=== PATIENT | female | born 1960 | race Caucasian/White ===

== ENCOUNTER → 2016-05-20 | Outpatient (CLI) | payer BC ==
[~2016-05-20] MED LIST: OMEP20CA5 PO
== END | disposition home or self-care (01) ==
LOC: LAB 10:27
DX: R16.0 Hepatomegaly, not elsewhere classified (principal); C80.1 Malignant (primary) neoplasm, unspecified
CPT/HCPCS: 36415; 82565; 84520

== ENCOUNTER → 2016-06-02 | Outpatient (CLI) | payer BC ==
[2016-06-02 09:51] LABS: Basophils # (auto) 0 uL; Basophils % (auto) 0.4 % (0.0-2.0); Eosinophils # (auto) 0 uL; Eosinophils % (auto) 0.4 % (0.0-7.0); Hemoglobin 15.2 g/dL (12.2-16.2); Lymphocytes # (auto) 1.8 uL; Lymphocytes % (auto) 31.8 % (10.0-50.0); Mean Corpuscular Volume 88.1 fL (80.0-100.0); Mean Platelet Volume 7.7 fL (7.4-10.4); Monocytes # (auto) 0.4 uL; Monocytes % (auto) 6.8 % (0.0-12.0); Neutrophils # (auto) 3.5 uL; Neutrophils % (auto) 60.6 % (37.0-80.0); Platelet Count (auto) 316 10^3/uL (140-450); Red Cell Distribution Width 11.9 % (11.6-16.0); White Blood Cell 5.7 10^3/uL (4.4-10.8)
[2016-06-02 10:18] LABS: Albumin 3.5 g/dL (3.4-5.0); BUN/Creatinine Ratio 30.9; Bilirubin, Total 0.2 mg/dL (0.2-1.0); Calcium 10.2 mg/dL (8.5-10.1); Potassium 4.8 mmol/L (3.5-5.1); Total Protein 8.7 g/dL (6.4-8.2)
[2016-06-02 10:34] LABS: Urine Bilirubin Negative (Negative); Urine Blood TRACE /uL (Negative); Urine Color Yellow (Yellow); Urine Glucose Normal (Normal); Urine Ketone Negative (Negative); Urine Mucus FEW (None Seen); Urine Nitrite Negative (Negative); Urine RBC 2 /hpf (0 - 4); Urine Squamous Epithelial Cell FEW /hpf (<5); Urine Urobilinogen Normal (Negative); Urine pH 5.5 (5.0-8.0)
[2016-06-02 13:16] LABS: Hepatitis B Surface Antibody Negative
== END | disposition home or self-care (01) ==
LOC: LAB 09:22
DX: C22.9 Malignant neoplasm of liver, not specified as primary or secondary (principal)
CPT/HCPCS: 36415; 80053; 80061; 81001; 84443; 85025; 85652; 86704; 86706; 86708; 86803; 87340

== ENCOUNTER → 2016-06-10 | Outpatient (CLI) | payer BC ==
[2016-06-10 11:09] LABS: INR 1.04 (0.9-1.15); Partial Thromboplastin Time 30.3 sec (22.64-33.71); Prothrombin Time 10.7 sec (9.37-12.3)
[2016-06-10 11:42] LABS: Albumin 3.7 g/dL (3.4-5.0); BUN/Creatinine Ratio 38.2; Bilirubin, Total 0.4 mg/dL (0.2-1.0); Calcium 10.7 mg/dL (8.5-10.1); Potassium 4.5 mmol/L (3.5-5.1); Total Protein 8.8 g/dL (6.4-8.2)
== END | disposition home or self-care (01) ==
LOC: LAB 09:30
DX: C80.1 Malignant (primary) neoplasm, unspecified (principal)
CPT/HCPCS: 36415; 80053; 85610; 85730; 86900; 86901

== ENCOUNTER → 2016-09-01 | Outpatient (CLI) | payer BC ==
[2016-09-01 10:12] LABS: Basophils # (auto) 0 uL; Basophils % (auto) 0.6 % (0.0-2.0); DEFINITIVE VIEW TRANSMISSION; Eosinophils # (auto) 0 uL; Eosinophils % (auto) 0.8 % (0.0-7.0); Hemoglobin 14.7 g/dL (12.2-16.2); Lymphocytes # (auto) 2.4 uL; Mean Corpuscular Hemoglobin 26.4 pg (28.0-32.0); Mean Corpuscular Volume 82.4 fL (80.0-100.0); Mean Platelet Volume 7.6 fL (7.4-10.4); Monocytes # (auto) 0.4 uL; Monocytes % (auto) 5.6 % (0.0-12.0); Neutrophils # (auto) 3.4 uL; Platelet Count (auto) 313 10^3/uL (140-450); Red Cell Distribution Width 14.4 % (11.6-16.0); White Blood Cell 6.3 10^3/uL (4.4-10.8)
[2016-09-01 10:28] LABS: Albumin 3.9 g/dL (3.4-5.0); BUN/Creatinine Ratio 27.8; Bilirubin, Total 0.2 mg/dL (0.2-1.0); Calcium 9.4 mg/dL (8.5-10.1); Magnesium 2.6 mg/dL (1.6-2.6); Potassium 4.5 mmol/L (3.5-5.1); Total Protein 9.6 g/dL (6.4-8.2)
== END | disposition home or self-care (01) ==
LOC: LAB 09:37
DX: C22.1 Intrahepatic bile duct carcinoma (principal); Z51.11 Encounter for antineoplastic chemotherapy
CPT/HCPCS: 36415; 80053; 82378; 83735; 85025; 86301

== ENCOUNTER → 2016-09-08 | Outpatient (CLI) | payer BC ==
[2016-09-08 10:46] LABS: Basophils # (auto) 0 uL; Basophils % (auto) 0.4 % (0.0-2.0); Eosinophils # (auto) 0.1 uL; Eosinophils % (auto) 0.6 % (0.0-7.0); Hematocrit 44.4 % (36.0-46.0); Hemoglobin 14.6 g/dL (12.2-16.2); Lymphocytes # (auto) 3.1 uL; Lymphocytes % (auto) 39.3 % (10.0-50.0); Mean Corpuscular Hemoglobin 27.3 pg (28.0-32.0); Mean Corpuscular Hgb Conc. 32.9 g/dL (32.0-36.0); Mean Platelet Volume 7.8 fL (7.4-10.4); Monocytes # (auto) 0.4 uL; Monocytes % (auto) 5.5 % (0.0-12.0); Neutrophils # (auto) 4.3 uL; Neutrophils % (auto) 54.2 % (37.0-80.0); Platelet Count (auto) 299 10^3/uL (140-450); Red Cell Distribution Width 15.4 % (11.6-16.0); White Blood Cell 7.9 10^3/uL (4.4-10.8)
[2016-09-08 11:11] LABS: Albumin 3.7 g/dL (3.4-5.0); BUN/Creatinine Ratio 24.4; Bilirubin, Total 0.2 mg/dL (0.2-1.0); Calcium 9.2 mg/dL (8.5-10.1); Magnesium 2.5 mg/dL (1.6-2.6); Potassium 4.7 mmol/L (3.5-5.1); Total Protein 9.2 g/dL (6.4-8.2)
== END | disposition home or self-care (01) ==
LOC: LAB 10:15
DX: C22.1 Intrahepatic bile duct carcinoma (principal); Z51.11 Encounter for antineoplastic chemotherapy
CPT/HCPCS: 36415; 80053; 83735; 85025

== ENCOUNTER → 2016-09-15 | Outpatient (CLI) | payer BC ==
[2016-09-15 09:47] LABS: Basophils # (auto) 0 uL; Basophils % (auto) 0.4 % (0.0-2.0); Eosinophils # (auto) 0.1 uL; Eosinophils % (auto) 1.7 % (0.0-7.0); Hematocrit 43.2 % (36.0-46.0); Hemoglobin 14.3 g/dL (12.2-16.2); Lymphocytes # (auto) 2.3 uL; Lymphocytes % (auto) 43.9 % (10.0-50.0); Mean Corpuscular Hemoglobin 27.3 pg (28.0-32.0); Mean Corpuscular Hgb Conc. 33.1 g/dL (32.0-36.0); Mean Corpuscular Volume 82.4 fL (80.0-100.0); Monocytes # (auto) 0.1 uL; Monocytes % (auto) 1.7 % (0.0-12.0); Neutrophils # (auto) 2.7 uL; Neutrophils % (auto) 52.3 % (37.0-80.0); Platelet Count (auto) 257 10^3/uL (140-450); Red Cell Distribution Width 15.9 % (11.6-16.0); White Blood Cell 5.1 10^3/uL (4.4-10.8)
[2016-09-15 09:51] LABS: Albumin 3.1 g/dL (3.4-5.0); BUN/Creatinine Ratio 29.6; Calcium 8.9 mg/dL (8.5-10.1); Magnesium 2.1 mg/dL (1.6-2.6); Potassium 4.7 mmol/L (3.5-5.1)
[2016-09-15 09:53] LABS: Bilirubin, Total 0.3 mg/dL (0.2-1.0); Total Protein 8.3 g/dL (6.4-8.2)
== END | disposition home or self-care (01) ==
LOC: LAB 08:52
DX: C80.1 Malignant (primary) neoplasm, unspecified (principal); C22.1 Intrahepatic bile duct carcinoma; Z51.11 Encounter for antineoplastic chemotherapy
CPT/HCPCS: 36415; 80053; 83735; 85025

== ENCOUNTER → 2016-09-29 | Outpatient (CLI) | payer BC ==
[~2016-09-29] MED LIST changes: -OMEP20CA5 PO; +OMEP20CA74 PO
[2016-09-29 10:30] LABS: DEFINITIVE VIEW TRANSMISSION; Hematocrit 38.2 % (36.0-46.0); Hemoglobin 12.6 g/dL (12.2-16.2); Mean Corpuscular Hemoglobin 26.9 pg (28.0-32.0); Mean Corpuscular Hgb Conc. 32.8 g/dL (32.0-36.0); Mean Corpuscular Volume 81.8 fL (80.0-100.0); Platelet Count (auto) 151 10^3/uL (140-450); White Blood Cell 3.2 10^3/uL (4.4-10.8)
[2016-09-29 10:47] LABS: Albumin 3.4 g/dL (3.4-5.0); Anion Gap 11 (5-15); BUN/Creatinine Ratio 21.3; Blood Urea Nitrogen 17 mg/dL (7-18); Calcium 8.7 mg/dL (8.5-10.1); Carbon Dioxide 20 mmol/L (21-32); Chloride 114 mmol/L (98-107); GFR African American 95 mL/min; GFR Non-African American 79 mL/min; Glucose 91 mg/dL (74-106); Magnesium 2.1 mg/dL (1.6-2.6); Potassium 4.5 mmol/L (3.5-5.1); Sodium 145 mmol/L (136-145)
[2016-09-29 10:50] LABS: Alkaline Phosphatase 138 U/L (45-117); Aspartate Aminotransferase 36 U/L (15-37); Bilirubin, Total < 0.1 mg/dL (0.2-1.0); Total Protein 8.7 g/dL (6.4-8.2)
[2016-09-29 10:53] LABS: Metamyelocytes % 0; Myelocytes % 0; Promyelocytes % 0; Reactive Lymphocytes 0
[2016-09-29 11:19] LABS: Platelet Estimate Adequate; RBC Morphology Normal
== END | disposition home or self-care (01) ==
LOC: LAB 09:38
DX: C22.1 Intrahepatic bile duct carcinoma (principal); Z51.11 Encounter for antineoplastic chemotherapy
CPT/HCPCS: 36415; 80053; 83735; 85007; 85027

== ENCOUNTER → 2016-10-02 | Outpatient (CLI) | payer BC ==
[2016-10-02 10:15] LABS: DEFINITIVE VIEW TRANSMISSION; Hematocrit 40.1 % (36.0-46.0); Hemoglobin 13.2 g/dL (12.2-16.2); Mean Corpuscular Hemoglobin 27.2 pg (28.0-32.0); Mean Corpuscular Hgb Conc. 32.9 g/dL (32.0-36.0); Mean Corpuscular Volume 82.8 fL (80.0-100.0); Mean Platelet Volume 6.8 fL (7.4-10.4); Platelet Count (auto) 467 10^3/uL (140-450); Red Cell Distribution Width 16.6 % (11.6-16.0); SUSPECT VIEW TRANSMISSION; White Blood Cell 3.5 10^3/uL (4.4-10.8)
[2016-10-02 10:23] LABS: Metamyelocytes % 0; Myelocytes % 0; Promyelocytes % 0; Reactive Lymphocytes 0
[2016-10-02 11:26] LABS: Potassium 4.4 mmol/L (3.5-5.1)
[2016-10-02 11:30] LABS: Albumin 3.3 g/dL (3.4-5.0); BUN/Creatinine Ratio 23.6; Calcium 8.6 mg/dL (8.5-10.1); Magnesium 2.1 mg/dL (1.6-2.6)
[2016-10-02 11:33] LABS: Bilirubin, Total 0.1 mg/dL (0.2-1.0); Total Protein 8.8 g/dL (6.4-8.2)
[2016-10-02 13:15] LABS: Platelet Estimate Increased
== END | disposition home or self-care (01) ==
LOC: LAB 09:37
DX: C22.1 Intrahepatic bile duct carcinoma (principal)
CPT/HCPCS: 36415; 80053; 82378; 83735; 85007; 85027; 86301

== ENCOUNTER → 2016-10-08 | Outpatient (CLI) | payer BC | END | disposition home or self-care (01) | LOC: LAB 10:41 | PROVIDERS: ATTEND Internal Medicine | DX: C22.1 Intrahepatic bile duct carcinoma (principal); C80.1 Malignant (primary) neoplasm, unspecified; G44.52 New daily persistent headache (NDPH) | CPT/HCPCS: 36415; 82565; 84520 ==

== ENCOUNTER → 2016-10-09 | Outpatient (CLI) | payer BC ==
[2016-10-09 09:04] LABS: Basophils # (auto) 0.1 uL; Basophils % (auto) 0.8 % (0.0-2.0); CONDITION Y; Eosinophils # (auto) 0.1 uL; Hematocrit 38.6 % (36.0-46.0); Hemoglobin 12.9 g/dL (12.2-16.2); Lymphocytes # (auto) 2.5 uL; Lymphocytes % (auto) 25.3 % (10.0-50.0); Mean Corpuscular Hemoglobin 27.4 pg (28.0-32.0); Mean Corpuscular Hgb Conc. 33.5 g/dL (32.0-36.0); Mean Platelet Volume 6.5 fL (7.4-10.4); Monocytes # (auto) 1.2 uL; Monocytes % (auto) 12.3 % (0.0-12.0); Neutrophils % (auto) 60.6 % (37.0-80.0); Platelet Count (auto) 682 10^3/uL (140-450); Red Cell Distribution Width 17.5 % (11.6-16.0); White Blood Cell 9.9 10^3/uL (4.4-10.8)
[2016-10-09 09:21] LABS: Albumin 3.3 g/dL (3.4-5.0); Magnesium 2.2 mg/dL (1.6-2.6)
[2016-10-09 09:23] LABS: BUN/Creatinine Ratio 33.3
[2016-10-09 09:26] LABS: Bilirubin, Total 0.1 mg/dL (0.2-1.0); Total Protein 8.8 g/dL (6.4-8.2)
== END | disposition home or self-care (01) ==
LOC: LAB 08:44
DX: C22.1 Intrahepatic bile duct carcinoma (principal); Z51.11 Encounter for antineoplastic chemotherapy
CPT/HCPCS: 36415; 80053; 83735; 85025

== ENCOUNTER → 2016-10-15 | Outpatient (CLI) | payer BC ==
[2016-10-15 11:35] LABS: Basophils # (auto) 0.1 uL; CONDITION Y; Eosinophils # (auto) 0 uL; Eosinophils % (auto) 0.4 % (0.0-7.0); Hematocrit 38.5 % (36.0-46.0); Hemoglobin 12.8 g/dL (12.2-16.2); Lymphocytes # (auto) 2.2 uL; Lymphocytes % (auto) 34.4 % (10.0-50.0); Mean Corpuscular Hemoglobin 27.1 pg (28.0-32.0); Mean Corpuscular Hgb Conc. 33.2 g/dL (32.0-36.0); Mean Corpuscular Volume 81.5 fL (80.0-100.0); Mean Platelet Volume 7.2 fL (7.4-10.4); Monocytes # (auto) 0.1 uL; Monocytes % (auto) 2.1 % (0.0-12.0); Neutrophils # (auto) 3.9 uL; Neutrophils % (auto) 62.1 % (37.0-80.0); Platelet Count (auto) 485 10^3/uL (140-450); Red Cell Distribution Width 17.4 % (11.6-16.0); White Blood Cell 6.3 10^3/uL (4.4-10.8)
[2016-10-15 12:12] LABS: Albumin 3.2 g/dL (3.4-5.0); BUN/Creatinine Ratio 53.8; Bilirubin, Total 0.3 mg/dL (0.2-1.0); Calcium 8.8 mg/dL (8.5-10.1); Magnesium 2.3 mg/dL (1.6-2.6); Potassium 4.2 mmol/L (3.5-5.1); Total Protein 8.3 g/dL (6.4-8.2)
== END | disposition home or self-care (01) ==
LOC: LAB 11:04
DX: C22.1 Intrahepatic bile duct carcinoma (principal); Z51.11 Encounter for antineoplastic chemotherapy
CPT/HCPCS: 36415; 80053; 83735; 85025

== ENCOUNTER → 2016-10-29 | Outpatient (CLI) | payer BC ==
[2016-10-29 11:26] LABS: Basophils # (auto) 0 uL; Basophils % (auto) 0.4 % (0.0-2.0); CONDITION Y; DEFINITIVE SEE PRINTOUT; Eosinophils # (auto) 0.1 uL; Eosinophils % (auto) 1.1 % (0.0-7.0); Hematocrit 38.5 % (36.0-46.0); Lymphocytes # (auto) 2.1 uL; Lymphocytes % (auto) 34.5 % (10.0-50.0); Mean Corpuscular Hgb Conc. 33.7 g/dL (32.0-36.0); Mean Platelet Volume 7.1 fL (7.4-10.4); Monocytes # (auto) 0.9 uL; Monocytes % (auto) 14.9 % (0.0-12.0); Neutrophils % (auto) 49.1 % (37.0-80.0); Platelet Count (auto) 240 10^3/uL (140-450); Red Cell Distribution Width 20.6 % (11.6-16.0); SUSPECT SEE PRINTOUT; White Blood Cell 6.1 10^3/uL (4.4-10.8)
[2016-10-29 11:57] LABS: Albumin 3.2 g/dL (3.4-5.0); BUN/Creatinine Ratio 31.7; Bilirubin, Total 0.2 mg/dL (0.2-1.0); Magnesium 2.2 mg/dL (1.6-2.6); Potassium 4.5 mmol/L (3.5-5.1); Total Protein 8.4 g/dL (6.4-8.2)
== END | disposition home or self-care (01) ==
LOC: LAB 11:09
DX: C22.1 Intrahepatic bile duct carcinoma (principal); Z51.11 Encounter for antineoplastic chemotherapy
CPT/HCPCS: 36415; 80053; 83735; 85025

== ENCOUNTER → 2016-11-05 | Outpatient (CLI) | payer BC ==
[2016-11-05 10:59] LABS: Basophils # (auto) 0 uL; Basophils % (auto) 0.7 % (0.0-2.0); CONDITION Y; DEFINITIVE SEE PRINTOUT; Eosinophils # (auto) 0.1 uL; Eosinophils % (auto) 1.9 % (0.0-7.0); Hematocrit 41.1 % (36.0-46.0); Hemoglobin 13.8 g/dL (12.2-16.2); Lymphocytes # (auto) 2.3 uL; Lymphocytes % (auto) 46.4 % (10.0-50.0); Mean Corpuscular Hemoglobin 28.3 pg (28.0-32.0); Mean Corpuscular Hgb Conc. 33.6 g/dL (32.0-36.0); Mean Corpuscular Volume 84.3 fL (80.0-100.0); Mean Platelet Volume 7.3 fL (7.4-10.4); Monocytes # (auto) 0.1 uL; Monocytes % (auto) 2.8 % (0.0-12.0); Neutrophils # (auto) 2.3 uL; Neutrophils % (auto) 48.2 % (37.0-80.0); Platelet Count (auto) 709 10^3/uL (140-450); White Blood Cell 4.9 10^3/uL (4.4-10.8)
[2016-11-05 11:14] LABS: Red Cell Distribution Width 22.6 % (11.6-16.0)
[2016-11-05 11:43] LABS: Albumin 3.6 g/dL (3.4-5.0); BUN/Creatinine Ratio 31.3; Bilirubin, Total 0.4 mg/dL (0.2-1.0); Calcium 9.8 mg/dL (8.5-10.1); Magnesium 2.3 mg/dL (1.6-2.6); Potassium 4.4 mmol/L (3.5-5.1); Total Protein 8.5 g/dL (6.4-8.2)
[2016-11-05 12:35] LABS: Anisocytosis Slight; Platelet Estimate Increased
== END | disposition home or self-care (01) ==
LOC: LAB 10:29
DX: C22.1 Intrahepatic bile duct carcinoma (principal); Z51.12 Encounter for antineoplastic immunotherapy
CPT/HCPCS: 36415; 80053; 83735; 85025

== ENCOUNTER → 2016-11-17 | Outpatient (CLI) | payer BC ==
[2016-11-17 11:00] LABS: Basophils # (auto) 0 uL; Basophils % (auto) 0.3 % (0.0-2.0); CONDITION Y; DEFINITIVE SEE PRINTOUT; Eosinophils # (auto) 0 uL; Eosinophils % (auto) 0.4 % (0.0-7.0); Hematocrit 33.8 % (36.0-46.0); Hemoglobin 11.6 g/dL (12.2-16.2); Lymphocytes # (auto) 2.3 uL; Lymphocytes % (auto) 38.3 % (10.0-50.0); Mean Corpuscular Hemoglobin 29.9 pg (28.0-32.0); Mean Corpuscular Hgb Conc. 34.3 g/dL (32.0-36.0); Mean Corpuscular Volume 87.1 fL (80.0-100.0); Mean Platelet Volume 7.5 fL (7.4-10.4); Monocytes # (auto) 0.6 uL; Monocytes % (auto) 10.6 % (0.0-12.0); Neutrophils % (auto) 50.4 % (37.0-80.0); Platelet Count (auto) 127 10^3/uL (140-450); White Blood Cell 5.9 10^3/uL (4.4-10.8)
[2016-11-17 11:03] LABS: Red Cell Distribution Width 22.9 % (11.6-16.0)
[2016-11-17 11:09] LABS: Albumin 3.2 g/dL (3.4-5.0); BUN/Creatinine Ratio 27.2; Bilirubin, Total 0.1 mg/dL (0.2-1.0); Calcium 8.9 mg/dL (8.5-10.1); Potassium 4.3 mmol/L (3.5-5.1); Total Protein 8.1 g/dL (6.4-8.2)
== END | disposition home or self-care (01) ==
LOC: LAB 10:29
DX: Z51.11 Encounter for antineoplastic chemotherapy (principal); C22.1 Intrahepatic bile duct carcinoma
CPT/HCPCS: 36415; 80053; 83735; 85025

== ENCOUNTER → 2016-11-25 | Outpatient (CLI) | payer BC ==
[2016-11-25 10:28] LABS: Basophils # (auto) 0 uL; Basophils % (auto) 0.6 % (0.0-2.0); CONDITION Y; DEFINITIVE SEE PRINTOUT; Eosinophils # (auto) 0.1 uL; Eosinophils % (auto) 1.8 % (0.0-7.0); Hematocrit 38.8 % (36.0-46.0); Hemoglobin 13.4 g/dL (12.2-16.2); Lymphocytes # (auto) 2.1 uL; Lymphocytes % (auto) 41.9 % (10.0-50.0); Mean Corpuscular Hemoglobin 30.8 pg (28.0-32.0); Mean Corpuscular Hgb Conc. 34.4 g/dL (32.0-36.0); Mean Corpuscular Volume 89.5 fL (80.0-100.0); Mean Platelet Volume 6.9 fL (7.4-10.4); Monocytes # (auto) 0.1 uL; Monocytes % (auto) 2.1 % (0.0-12.0); Neutrophils # (auto) 2.7 uL; Neutrophils % (auto) 53.6 % (37.0-80.0); Platelet Count (auto) 576 10^3/uL (140-450); White Blood Cell 4.9 10^3/uL (4.4-10.8)
[2016-11-25 10:33] LABS: Red Cell Distribution Width 23.6 % (11.6-16.0)
[2016-11-25 11:07] LABS: Platelet Estimate Increased
[2016-11-25 11:08] LABS: Anisocytosis Moderate
[2016-11-25 11:14] LABS: Potassium 4.3 mmol/L (3.5-5.1)
[2016-11-25 11:15] LABS: Albumin 3.8 g/dL (3.4-5.0); BUN/Creatinine Ratio 33.7; Bilirubin, Total 0.4 mg/dL (0.2-1.0); Calcium 9.5 mg/dL (8.5-10.1); Magnesium 2.2 mg/dL (1.6-2.6); Total Protein 8.9 g/dL (6.4-8.2)
== END | disposition home or self-care (01) ==
LOC: LAB 08:38
DX: C22.1 Intrahepatic bile duct carcinoma (principal)
CPT/HCPCS: 36415; 80053; 82378; 83735; 85025; 86301

== ENCOUNTER → 2016-12-16 | Outpatient (CLI) | payer BC ==
[2016-12-16 09:47] LABS: CONDITION Y; DEFINITIVE SEE PRINTOUT; Hematocrit 37.8 % (36.0-46.0); Hemoglobin 12.7 g/dL (12.2-16.2); Mean Corpuscular Hgb Conc. 33.5 g/dL (32.0-36.0); Mean Corpuscular Volume 95.6 fL (80.0-100.0); Mean Platelet Volume 6.8 fL (7.4-10.4); Platelet Count (auto) 621 10^3/uL (140-450); White Blood Cell 5.5 10^3/uL (4.4-10.8)
[2016-12-16 09:51] LABS: Metamyelocytes % 0; Myelocytes % 0; Promyelocytes % 0
[2016-12-16 10:08] LABS: Albumin 3.6 g/dL (3.4-5.0); BUN/Creatinine Ratio 39.1; Bilirubin, Total 0.3 mg/dL (0.2-1.0); Calcium 9.2 mg/dL (8.5-10.1); Potassium 4.2 mmol/L (3.5-5.1); Total Protein 8.8 g/dL (6.4-8.2)
[2016-12-16 11:30] LABS: Reactive Lymphocytes 1
[2016-12-16 11:31] LABS: Anisocytosis Slight; Giant Platelets Few; Platelet Clumps FEW; Platelet Estimate Increased
== END | disposition home or self-care (01) ==
LOC: LAB 09:10
DX: Z51.11 Encounter for antineoplastic chemotherapy (principal); C22.1 Intrahepatic bile duct carcinoma
CPT/HCPCS: 36415; 80053; 83735; 85007; 85027

== ENCOUNTER → 2017-01-08 | Outpatient (CLI) | payer BC ==
[2017-01-08 11:30] LABS: Basophils # (auto) 0 uL; Basophils % (auto) 0.3 % (0.0-2.0); Eosinophils # (auto) 0 uL; Eosinophils % (auto) 0.8 % (0.0-7.0); Hematocrit 39.4 % (36.0-46.0); Hemoglobin 13.4 g/dL (12.2-16.2); Lymphocytes # (auto) 2.2 uL; Lymphocytes % (auto) 50.8 % (10.0-50.0); Mean Corpuscular Hemoglobin 33.1 pg (28.0-32.0); Mean Corpuscular Volume 97.3 fL (80.0-100.0); Mean Platelet Volume 7.1 fL (6.9-10.8); Monocytes # (auto) 0.6 uL; Neutrophils # (auto) 1.4 uL; Neutrophils % (auto) 33.1 % (37.0-80.0); Nucleated Red Blood Cells % 0.1 %; Platelet Count (auto) 278 10^3/uL (140-450); Red Cell Distribution Width 16.5 % (11.8-14.3); White Blood Cell 4.3 10^3/uL (4.4-10.8)
[2017-01-08 11:47] LABS: Albumin 3.8 g/dL (3.4-5.0); BUN/Creatinine Ratio 27.1; Magnesium 2.1 mg/dL (1.6-2.6); Potassium 4.6 mmol/L (3.5-5.1)
[2017-01-08 11:50] LABS: Bilirubin, Total 0.2 mg/dL (0.2-1.0); Total Protein 8.7 g/dL (6.4-8.2)
== END | disposition home or self-care (01) ==
LOC: LAB 11:10
DX: Z51.5 Encounter for palliative care (principal); C22.1 Intrahepatic bile duct carcinoma; R79.89 Other specified abnormal findings of blood chemistry
CPT/HCPCS: 36415; 80053; 83735; 85025

== ENCOUNTER → 2017-01-13 | Outpatient (CLI) | payer BC | END | disposition home or self-care (01) | LOC: LAB 10:46 | DX: C22.1 Intrahepatic bile duct carcinoma (principal) | CPT/HCPCS: 82378 ==

== ENCOUNTER → 2017-01-26 | Outpatient (CLI) | payer BC ==
[2017-01-26 11:10] LABS: Hemoglobin 11.8 g/dL (12.2-16.2); Mean Corpuscular Hemoglobin 33.4 pg (28.0-32.0); Mean Corpuscular Hgb Conc. 34.7 g/dL (32.0-36.0); Mean Platelet Volume 7.7 fL (6.9-10.8); Platelet Count (auto) 59 10^3/uL (140-450); White Blood Cell 4.3 10^3/uL (4.4-10.8)
[2017-01-26 11:11] LABS: Mean Corpuscular Volume 96.2 fL (80.0-100.0); Red Cell Distribution Width 15.2 % (11.8-14.3)
[2017-01-26 11:53] LABS: Albumin 3.6 g/dL (3.4-5.0); BUN/Creatinine Ratio 29.1; Bilirubin, Total 0.3 mg/dL (0.2-1.0); Calcium 9.7 mg/dL (8.5-10.1); Total Protein 8.3 g/dL (6.4-8.2)
[2017-01-26 13:27] LABS: Basophils # (auto) 0 uL; Basophils % (auto) 0.4 % (0.0-2.0); Eosinophils # (auto) 0 uL; Eosinophils % (auto) 0.3 % (0.0-7.0); Lymphocytes # (auto) 1.9 uL; Monocytes # (auto) 0.4 uL; Monocytes % (auto) 9.1 % (0.0-12.0); Neutrophils % (auto) 46.2 % (37.0-80.0)
[2017-01-26 13:29] LABS: Platelet Estimate Decreased
== END | disposition home or self-care (01) ==
LOC: LAB 10:47
PROVIDERS: ATTEND Internal Medicine
DX: C22.1 Intrahepatic bile duct carcinoma (principal); Z79.899 Other long term (current) drug therapy
CPT/HCPCS: 36415; 80053; 83735; 85007; 85025; 85027

== ENCOUNTER → 2017-01-29 | Outpatient (CLI) | payer BC ==
[2017-01-29 11:01] LABS: Basophils # (auto) 0 uL; Basophils % (auto) 0.7 % (0.0-2.0); Eosinophils # (auto) 0.1 uL; Eosinophils % (auto) 1.7 % (0.0-7.0); Hematocrit 35.9 % (36.0-46.0); Hemoglobin 12.2 g/dL (12.2-16.2); Lymphocytes # (auto) 1.6 uL; Lymphocytes % (auto) 41.1 % (10.0-50.0); Mean Corpuscular Hemoglobin 33.3 pg (28.0-32.0); Mean Corpuscular Hgb Conc. 33.9 g/dL (32.0-36.0); Mean Corpuscular Volume 98.2 fL (80.0-100.0); Mean Platelet Volume 8.1 fL (6.9-10.8); Monocytes # (auto) 0.5 uL; Monocytes % (auto) 11.7 % (0.0-12.0); Neutrophils # (auto) 1.8 uL; Neutrophils % (auto) 44.8 % (37.0-80.0); Nucleated Red Blood Cells % 0.2 %; Platelet Count (auto) 138 10^3/uL (140-450); Red Cell Distribution Width 15.6 % (11.8-14.3); White Blood Cell 3.9 10^3/uL (4.4-10.8)
== END | disposition home or self-care (01) ==
LOC: LAB 09:27
PROVIDERS: ATTEND Internal Medicine
DX: D69.6 Thrombocytopenia, unspecified (principal)
CPT/HCPCS: 36415; 85025

== ENCOUNTER → 2017-02-04 | Outpatient (CLI) | payer BC ==
[2017-02-04 10:59] LABS: Basophils # (auto) 0 uL; Basophils % (auto) 0.8 % (0.0-2.0); Eosinophils # (auto) 0.1 uL; Eosinophils % (auto) 2.3 % (0.0-7.0); Hematocrit 37.7 % (36.0-46.0); Hemoglobin 12.7 g/dL (12.2-16.2); Lymphocytes # (auto) 1.8 uL; Lymphocytes % (auto) 52.8 % (10.0-50.0); Mean Corpuscular Hemoglobin 32.9 pg (28.0-32.0); Mean Corpuscular Hgb Conc. 33.8 g/dL (32.0-36.0); Mean Corpuscular Volume 97.3 fL (80.0-100.0); Mean Platelet Volume 6.7 fL (6.9-10.8); Monocytes # (auto) 0.2 uL; Monocytes % (auto) 4.4 % (0.0-12.0); Neutrophils # (auto) 1.4 uL; Neutrophils % (auto) 39.7 % (37.0-80.0); Nucleated Red Blood Cells % 0.1 %; Platelet Count (auto) 438 10^3/uL (140-450); White Blood Cell 3.5 10^3/uL (4.4-10.8)
[2017-02-04 11:26] LABS: Albumin 3.8 g/dL (3.4-5.0); BUN/Creatinine Ratio 39.6; Bilirubin, Total 0.2 mg/dL (0.2-1.0); Calcium 9.3 mg/dL (8.5-10.1); Magnesium 1.9 mg/dL (1.6-2.6); Potassium 4.3 mmol/L (3.5-5.1); Total Protein 8.6 g/dL (6.4-8.2)
== END | disposition home or self-care (01) ==
LOC: LAB 10:33
DX: C22.1 Intrahepatic bile duct carcinoma (principal); R79.89 Other specified abnormal findings of blood chemistry
CPT/HCPCS: 36415; 80053; 83735; 85025

== ENCOUNTER → 2017-02-18 | Outpatient (CLI) | payer BC ==
[2017-02-18 09:32] LABS: Basophils # (auto) 0 uL; Basophils % (auto) 0.4 % (0.0-2.0); Eosinophils # (auto) 0 uL; Eosinophils % (auto) 0.5 % (0.0-7.0); Hematocrit 30.9 % (36.0-46.0); Hemoglobin 10.5 g/dL (12.2-16.2); Lymphocytes # (auto) 1.5 uL; Lymphocytes % (auto) 39.2 % (10.0-50.0); Mean Corpuscular Hemoglobin 32.8 pg (28.0-32.0); Mean Corpuscular Hgb Conc. 34.1 g/dL (32.0-36.0); Mean Corpuscular Volume 96.3 fL (80.0-100.0); Mean Platelet Volume 7.7 fL (6.9-10.8); Monocytes # (auto) 0.5 uL; Monocytes % (auto) 14.3 % (0.0-12.0); Neutrophils # (auto) 1.7 uL; Neutrophils % (auto) 45.6 % (37.0-80.0); Nucleated Red Blood Cells % 0.2 %; Platelet Count (auto) 99 10^3/uL (140-450); Red Cell Distribution Width 15.9 % (11.8-14.3); White Blood Cell 3.8 10^3/uL (4.4-10.8)
[2017-02-18 10:43] LABS: Albumin 3.4 g/dL (3.4-5.0); BUN/Creatinine Ratio 26.8; Bilirubin, Total 0.2 mg/dL (0.2-1.0); Calcium 8.8 mg/dL (8.5-10.1); Magnesium 1.9 mg/dL (1.6-2.6); Potassium 4.4 mmol/L (3.5-5.1)
== END | disposition home or self-care (01) ==
LOC: LAB 09:10
DX: C22.1 Intrahepatic bile duct carcinoma (principal); R79.89 Other specified abnormal findings of blood chemistry
CPT/HCPCS: 36415; 80053; 82378; 83735; 85025; 86301

== ENCOUNTER → 2017-02-25 | Outpatient (CLI) | payer BC ==
[2017-02-25 09:32] LABS: Basophils # (auto) 0 uL; Basophils % (auto) 1.1 % (0.0-2.0); Eosinophils # (auto) 0.1 uL; Eosinophils % (auto) 2.7 % (0.0-7.0); Hematocrit 33.2 % (36.0-46.0); Hemoglobin 11.1 g/dL (12.2-16.2); Lymphocytes # (auto) 1.5 uL; Lymphocytes % (auto) 49.4 % (10.0-50.0); Mean Corpuscular Hemoglobin 32.2 pg (28.0-32.0); Mean Corpuscular Hgb Conc. 33.6 g/dL (32.0-36.0); Monocytes # (auto) 0.2 uL; Monocytes % (auto) 5.5 % (0.0-12.0); Neutrophils # (auto) 1.2 uL; Neutrophils % (auto) 41.3 % (37.0-80.0); Nucleated Red Blood Cells % 0.1 %; Platelet Count (auto) 396 10^3/uL (140-450); Red Blood Cells 3.45 10^6/uL (4.0-5.20); Red Cell Distribution Width 16.1 % (11.8-14.3)
[2017-02-25 10:01] LABS: Albumin 3.4 g/dL (3.4-5.0); BUN/Creatinine Ratio 29.8; Bilirubin, Total 0.4 mg/dL (0.2-1.0); Calcium 8.9 mg/dL (8.5-10.1); Magnesium 1.6 mg/dL (1.6-2.6); Potassium 4.2 mmol/L (3.5-5.1)
== END | disposition home or self-care (01) ==
LOC: LAB 08:58
DX: C22.1 Intrahepatic bile duct carcinoma (principal)
CPT/HCPCS: 36415; 80053; 83735; 85025

== ENCOUNTER → 2017-03-26 | Outpatient (CLI) | payer BC ==
[2017-03-26 13:52] LABS: Basophils # (auto) 0.1 uL; Eosinophils # (auto) 0 uL; Eosinophils % (auto) 0.3 % (0.0-7.0); Hematocrit 37.3 % (36.0-46.0); Hemoglobin 12.5 g/dL (12.2-16.2); Lymphocytes # (auto) 2.4 uL; Mean Corpuscular Hemoglobin 32.6 pg (28.0-32.0); Mean Corpuscular Hgb Conc. 33.6 g/dL (32.0-36.0); Mean Corpuscular Volume 97.2 fL (80.0-100.0); Mean Platelet Volume 7.6 fL (6.9-10.8); Monocytes # (auto) 0.8 uL; Monocytes % (auto) 9.5 % (0.0-12.0); Neutrophils % (auto) 60.2 % (37.0-80.0); Nucleated Red Blood Cells % 0.1 %; Platelet Count (auto) 320 10^3/uL (140-450); Red Cell Distribution Width 17.3 % (11.8-14.3); White Blood Cell 8.3 10^3/uL (4.4-10.8)
[2017-03-26 14:05] LABS: Albumin 4.2 g/dL (3.4-5.0); BUN/Creatinine Ratio 25.2; Bilirubin, Total 0.5 mg/dL (0.2-1.0); Calcium 9.6 mg/dL (8.5-10.1); Magnesium 2.1 mg/dL (1.6-2.6); Potassium 4.8 mmol/L (3.5-5.1); Total Protein 9.1 g/dL (6.4-8.2)
== END | disposition home or self-care (01) ==
LOC: LAB 12:40
DX: C22.1 Intrahepatic bile duct carcinoma (principal); Z79.899 Other long term (current) drug therapy
CPT/HCPCS: 36415; 80053; 82378; 83735; 85025; 86301

== ENCOUNTER → 2017-03-31 | Outpatient (CLI) | payer BC | END | disposition home or self-care (01) | LOC: LAB 08:01 | PROVIDERS: ATTEND Internal Medicine | DX: C80.1 Malignant (primary) neoplasm, unspecified (principal) | CPT/HCPCS: 36415; 82565; 84520 ==

== ENCOUNTER → 2017-06-25 | Outpatient (CLI) | payer BC ==
[2017-06-25 10:04] LABS: Basophils # (auto) 0 uL; Basophils % (auto) 0.7 % (0.0-2.0); Eosinophils # (auto) 0.1 uL; Eosinophils % (auto) 1.4 % (0.0-7.0); Hematocrit 43.2 % (36.0-46.0); Hemoglobin 14.4 g/dL (12.2-16.2); Lymphocytes % (auto) 33.1 % (10.0-50.0); Mean Corpuscular Hemoglobin 30.8 pg (28.0-32.0); Mean Corpuscular Hgb Conc. 33.3 g/dL (32.0-36.0); Mean Corpuscular Volume 92.5 fL (80.0-100.0); Monocytes # (auto) 0.5 uL; Monocytes % (auto) 7.9 % (0.0-12.0); Neutrophils # (auto) 3.4 uL; Neutrophils % (auto) 56.9 % (37.0-80.0); Platelet Count (auto) 260 10^3/uL (140-450); Red Blood Cells 4.67 10^6/uL (4.0-5.20); Red Cell Distribution Width 12.7 % (11.8-14.3); White Blood Cell 5.9 10^3/uL (4.4-10.8)
[2017-06-25 10:42] LABS: Albumin 3.7 g/dL (3.4-5.0); BUN/Creatinine Ratio 21.2; Bilirubin, Total 0.2 mg/dL (0.2-1.0); Calcium 9.4 mg/dL (8.5-10.1); Magnesium 2.4 mg/dL (1.6-2.6); Potassium 4.6 mmol/L (3.5-5.1); Total Protein 8.9 g/dL (6.4-8.2)
[2017-06-25 11:38] LABS: Urine Bacteria NONE SEEN /hpf (None Seen); Urine Blood Negative /uL (Negative); Urine Specific Gravity 1.026 (1.001-1.035); Urine WBC 8 /hpf (0 - 5)
[2017-06-25 20:11] LABS: Carcinoembryonic Antigen 0.52 ng/mL (<5.0 OR =)
[2017-06-25 20:24] LABS: Free T4 (Free Thyroxine) 1.13 ng/dL (0.89-1.76)
== END | disposition home or self-care (01) ==
LOC: LAB 09:26
PROVIDERS: ATTEND Internal Medicine
DX: C22.1 Intrahepatic bile duct carcinoma (principal); I10 Essential (primary) hypertension
CPT/HCPCS: 36415; 80053; 80061; 81001; 82043; 82378; 83735; 84439; 84443; 85025; 86301

== ENCOUNTER → 2017-09-28 | Outpatient (CLI) | payer BC ==
[2017-09-28 09:30] LABS: Basophils # (auto) 0 uL; Basophils % (auto) 0.5 % (0.0-2.0); Eosinophils # (auto) 0.1 uL; Eosinophils % (auto) 1.1 % (0.0-7.0); Hematocrit 44.1 % (36.0-46.0); Hemoglobin 14.8 g/dL (12.2-16.2); Lymphocytes # (auto) 2.1 uL; Lymphocytes % (auto) 37.1 % (10.0-50.0); Mean Corpuscular Hemoglobin 31.8 pg (28.0-32.0); Mean Corpuscular Hgb Conc. 33.6 g/dL (32.0-36.0); Mean Corpuscular Volume 94.7 fL (80.0-100.0); Monocytes # (auto) 0.5 uL; Monocytes % (auto) 8.2 % (0.0-12.0); Neutrophils % (auto) 53.1 % (37.0-80.0); Platelet Count (auto) 213 10^3/uL (140-450); Red Blood Cells 4.66 10^6/uL (4.0-5.20); Red Cell Distribution Width 12.6 % (11.8-14.3); White Blood Cell 5.7 10^3/uL (4.4-10.8)
[2017-09-28 10:04] LABS: Albumin 3.9 g/dL (3.4-5.0); BUN/Creatinine Ratio 21.3; Bilirubin, Total 0.4 mg/dL (0.2-1.0); Calcium 9.4 mg/dL (8.5-10.1); Potassium 4.3 mmol/L (3.5-5.1); Total Protein 8.6 g/dL (6.4-8.2)
== END | disposition home or self-care (01) ==
LOC: LAB 08:22
DX: C22.1 Intrahepatic bile duct carcinoma (principal); I10 Essential (primary) hypertension; Z79.899 Other long term (current) drug therapy
CPT/HCPCS: 36415; 80053; 82378; 85025

== ENCOUNTER → 2017-12-23 | Outpatient (CLI) | payer BC ==
[2017-12-23 07:57] LABS: Basophils # (auto) 0 uL; Basophils % (auto) 0.9 % (0.0-2.0); Eosinophils # (auto) 0.1 uL; Eosinophils % (auto) 1.4 % (0.0-7.0); Hematocrit 40.2 % (36.0-46.0); Hemoglobin 13.5 g/dL (12.2-16.2); Lymphocytes # (auto) 1.5 uL; Lymphocytes % (auto) 32.8 % (10.0-50.0); Mean Corpuscular Hemoglobin 30.8 pg (28.0-32.0); Mean Corpuscular Hgb Conc. 33.4 g/dL (32.0-36.0); Mean Corpuscular Volume 92.2 fL (80.0-100.0); Monocytes # (auto) 0.4 uL; Monocytes % (auto) 8.4 % (0.0-12.0); Neutrophils # (auto) 2.6 uL; Neutrophils % (auto) 56.5 % (37.0-80.0); Nucleated Red Blood Cells % 0.1 %; Platelet Count (auto) 202 10^3/uL (140-450); Red Blood Cells 4.36 10^6/uL (4.0-5.20); Red Cell Distribution Width 14.3 % (11.8-14.3); White Blood Cell 4.7 10^3/uL (4.4-10.8)
[2017-12-23 08:36] LABS: Albumin 3.5 g/dL (3.4-5.0); BUN/Creatinine Ratio 23.4; Bilirubin, Total 0.6 mg/dL (0.2-1.0); Calcium 8.9 mg/dL (8.5-10.1); Potassium 4.3 mmol/L (3.5-5.1); Total Protein 8.5 g/dL (6.4-8.2)
== END | disposition home or self-care (01) ==
LOC: LAB 07:18
PROVIDERS: ATTEND Internal Medicine
DX: C22.1 Intrahepatic bile duct carcinoma (principal); C80.1 Malignant (primary) neoplasm, unspecified
CPT/HCPCS: 36415; 80053; 82378; 85025

== ENCOUNTER → 2018-03-22 | Outpatient (CLI) | payer BC ==
[2018-03-22 08:27] LABS: Basophils # (auto) 0 uL; Basophils % (auto) 0.9 % (0.0-2.0); Eosinophils # (auto) 0.1 uL; Eosinophils % (auto) 1.5 % (0.0-7.0); Hematocrit 44.8 % (36.0-46.0); Lymphocytes % (auto) 38.6 % (10.0-50.0); Mean Corpuscular Hemoglobin 31.5 pg (28.0-32.0); Mean Corpuscular Hgb Conc. 33.4 g/dL (32.0-36.0); Mean Corpuscular Volume 94.3 fL (80.0-100.0); Monocytes # (auto) 0.4 uL; Neutrophils # (auto) 2.6 uL; Nucleated Red Blood Cells % 0.1 %; Platelet Count (auto) 243 10^3/uL (140-450); Red Blood Cells 4.75 10^6/uL (4.0-5.20); Red Cell Distribution Width 13.3 % (11.8-14.3); White Blood Cell 5.1 10^3/uL (4.4-10.8)
[2018-03-22 08:37] LABS: Albumin 3.6 g/dL (3.4-5.0); Calcium 9.4 mg/dL (8.5-10.1); Potassium 4.7 mmol/L (3.5-5.1)
[2018-03-22 08:41] LABS: Bilirubin, Total 0.3 mg/dL (0.2-1.0); Total Protein 8.6 g/dL (6.4-8.2)
== END | disposition home or self-care (01) ==
LOC: LAB 07:55
PROVIDERS: ATTEND Internal Medicine
DX: C80.1 Malignant (primary) neoplasm, unspecified (principal); C22.1 Intrahepatic bile duct carcinoma
CPT/HCPCS: 36415; 80053; 82378; 85025; 86301

== ENCOUNTER 2018-04-13 10:26 | Emergency (ER) | payer BC ==
[~2018-04-13] VITALS: Ht 170.2 cm; Wt 72.6 kg
[2018-04-13 10:53] VITALS: BP 172/79
[2018-04-13 11:10] LABS: Basophils # (auto) 0 uL; Basophils % (auto) 0.4 % (0.0-2.0); Eosinophils # (auto) 0 uL; Eosinophils % (auto) 0.2 % (0.0-7.0); Hematocrit 44.8 % (36.0-46.0); Hemoglobin 15.1 g/dL (12.2-16.2); Lymphocytes # (auto) 1.9 uL; Lymphocytes % (auto) 28.4 % (10.0-50.0); Mean Corpuscular Hemoglobin 32.1 pg (28.0-32.0); Mean Corpuscular Hgb Conc. 33.6 g/dL (32.0-36.0); Mean Corpuscular Volume 95.5 fL (80.0-100.0); Monocytes # (auto) 0.5 uL; Monocytes % (auto) 7.1 % (0.0-12.0); Neutrophils # (auto) 4.3 uL; Neutrophils % (auto) 63.9 % (37.0-80.0); Platelet Count (auto) 217 10^3/uL (140-450); Red Blood Cells 4.69 10^6/uL (4.0-5.20); White Blood Cell 6.8 10^3/uL (4.4-10.8)
[2018-04-13 11:26] LABS: BUN/Creatinine Ratio 21.6; Calcium 9.9 mg/dL (8.5-10.1)
[2018-04-13 11:29] LABS: Bilirubin, Total 0.5 mg/dL (0.2-1.0); Total Protein 8.7 g/dL (6.4-8.2)
== END 2018-04-13 13:06 | disposition home or self-care (01) ==
LOC: ER 10:26
DX: S00.12XA Contusion of left eyelid and periocular area, initial encounter (principal); S00.11XA Contusion of right eyelid and periocular area, initial encounter; S00.83XA Contusion of other part of head, initial encounter; Z79.899 Other long term (current) drug therapy; W18.39XA Other fall on same level, initial encounter; Y93.89 Activity, other specified; Y99.8 Other external cause status; Y92.481 Parking lot as the place of occurrence of the external cause
CPT/HCPCS: 36415; 70450; 70486; 80053; 84439; 84443; 85025; 87045; 87177; 87899

== ENCOUNTER → 2018-06-25 | Outpatient (CLI) | payer BC ==
[2018-06-25 09:42] LABS: Basophils # (auto) 0 uL; Basophils % (auto) 0.9 % (0.0-2.0); Eosinophils # (auto) 0.1 uL; Eosinophils % (auto) 1.2 % (0.0-7.0); Hematocrit 45.9 % (36.0-46.0); Hemoglobin 15.2 g/dL (12.2-16.2); Lymphocytes # (auto) 2.1 uL; Lymphocytes % (auto) 40.6 % (10.0-50.0); Mean Corpuscular Hgb Conc. 33.2 g/dL (32.0-36.0); Mean Corpuscular Volume 96.5 fL (80.0-100.0); Monocytes # (auto) 0.4 uL; Monocytes % (auto) 7.8 % (0.0-12.0); Neutrophils # (auto) 2.5 uL; Neutrophils % (auto) 49.5 % (37.0-80.0); Nucleated Red Blood Cells % 0.1 %; Platelet Count (auto) 234 10^3/uL (140-450); Red Blood Cells 4.75 10^6/uL (4.0-5.20); Red Cell Distribution Width 12.6 % (11.8-14.3); White Blood Cell 5.1 10^3/uL (4.4-10.8)
[2018-06-25 10:39] LABS: Potassium 4.2 mmol/L (3.5-5.1)
[2018-06-25 10:49] LABS: Albumin 3.9 g/dL (3.4-5.0); BUN/Creatinine Ratio 20.2; Bilirubin, Total 0.5 mg/dL (0.2-1.0); Calcium 9.7 mg/dL (8.5-10.1)
== END | disposition home or self-care (01) ==
LOC: LAB 08:09
PROVIDERS: ATTEND Internal Medicine
DX: C22.1 Intrahepatic bile duct carcinoma (principal); C80.1 Malignant (primary) neoplasm, unspecified
CPT/HCPCS: 36415; 80053; 82378; 85025; 86301

== ENCOUNTER → 2018-08-04 | Outpatient (CLI) | payer BC ==
[2018-08-04 11:53] LABS: INR 0.94 (0.9-1.15); Partial Thromboplastin Time 29.8 sec (23.78-33.04); Prothrombin Time 10.1 sec (9.27-12.13)
[2018-08-04 12:01] LABS: Basophils # (auto) 0.1 uL; Eosinophils # (auto) 0 uL; Eosinophils % (auto) 0.3 % (0.0-7.0); Hematocrit 42.5 % (36.0-46.0); Lymphocytes % (auto) 31.8 % (10.0-50.0); Mean Corpuscular Hemoglobin 31.5 pg (28.0-32.0); Mean Corpuscular Hgb Conc. 32.9 g/dL (32.0-36.0); Mean Corpuscular Volume 95.8 fL (80.0-100.0); Monocytes # (auto) 0.4 uL; Monocytes % (auto) 6.1 % (0.0-12.0); Neutrophils # (auto) 3.9 uL; Neutrophils % (auto) 60.8 % (37.0-80.0); Platelet Count (auto) 194 10^3/uL (140-450); Red Blood Cells 4.44 10^6/uL (4.0-5.20); Red Cell Distribution Width 12.2 % (11.8-14.3); White Blood Cell 6.4 10^3/uL (4.4-10.8)
== END | disposition home or self-care (01) ==
LOC: LAB 11:04
DX: C22.1 Intrahepatic bile duct carcinoma (principal); R16.0 Hepatomegaly, not elsewhere classified
CPT/HCPCS: 36415; 85025; 85610; 85730

== ENCOUNTER → 2018-09-02 | Outpatient (CLI) | payer BC ==
[2018-09-02 08:22] LABS: Basophils # (auto) 0 uL; Basophils % (auto) 0.8 % (0.0-2.0); Eosinophils # (auto) 0.1 uL; Eosinophils % (auto) 1.3 % (0.0-7.0); Hemoglobin 14.1 g/dL (12.2-16.2); Lymphocytes # (auto) 1.6 uL; Lymphocytes % (auto) 30.3 % (10.0-50.0); Mean Corpuscular Hemoglobin 31.8 pg (28.0-32.0); Mean Corpuscular Hgb Conc. 33.5 g/dL (32.0-36.0); Mean Corpuscular Volume 94.9 fL (80.0-100.0); Monocytes # (auto) 0.4 uL; Monocytes % (auto) 8.4 % (0.0-12.0); Neutrophils % (auto) 59.2 % (37.0-80.0); Nucleated Red Blood Cells % 0.1 %; Platelet Count (auto) 200 10^3/uL (140-450); Red Blood Cells 4.42 10^6/uL (4.0-5.20); Red Cell Distribution Width 12.3 % (11.8-14.3); White Blood Cell 5.1 10^3/uL (4.4-10.8)
[2018-09-02 08:39] LABS: Albumin 3.5 g/dL (3.4-5.0); Potassium 4.2 mmol/L (3.5-5.1)
[2018-09-02 08:43] LABS: BUN/Creatinine Ratio 23.2; Bilirubin, Total 0.3 mg/dL (0.2-1.0); Total Protein 7.6 g/dL (6.4-8.2)
== END | disposition home or self-care (01) ==
LOC: LAB 08:01
DX: C22.1 Intrahepatic bile duct carcinoma (principal)
CPT/HCPCS: 36415; 80053; 82378; 85025

== ENCOUNTER → 2018-09-23 | Outpatient (CLI) | payer BC ==
[2018-09-23 08:28] LABS: Basophils # (auto) 0 uL; Basophils % (auto) 0.1 % (0.0-2.0); Eosinophils # (auto) 0.2 uL; Eosinophils % (auto) 3.8 % (0.0-7.0); Hematocrit 42.6 % (36.0-46.0); Hemoglobin 14.4 g/dL (12.2-16.2); Lymphocytes # (auto) 2.2 uL; Lymphocytes % (auto) 42.6 % (10.0-50.0); Mean Corpuscular Hemoglobin 31.9 pg (28.0-32.0); Mean Corpuscular Hgb Conc. 33.9 g/dL (32.0-36.0); Mean Corpuscular Volume 94.1 fL (80.0-100.0); Monocytes # (auto) 0.5 uL; Monocytes % (auto) 9.5 % (0.0-12.0); Neutrophils # (auto) 2.3 uL; Platelet Count (auto) 246 10^3/uL (140-450); Red Blood Cells 4.53 10^6/uL (4.0-5.20); Red Cell Distribution Width 11.7 % (11.8-14.3); White Blood Cell 5.2 10^3/uL (4.4-10.8)
[2018-09-23 09:16] LABS: Calcium 8.3 mg/dL (8.5-10.1); Potassium 3.8 mmol/L (3.5-5.1)
[2018-09-23 09:23] LABS: Albumin 3.1 g/dL (3.4-5.0); BUN/Creatinine Ratio 26.2; Bilirubin, Total 0.3 mg/dL (0.2-1.0)
== END | disposition home or self-care (01) ==
LOC: LAB 08:01
DX: C22.1 Intrahepatic bile duct carcinoma (principal)
CPT/HCPCS: 36415; 80053; 82378; 85025

== ENCOUNTER → 2018-10-05 | Outpatient (CLI) | payer BC ==
[2018-10-05 12:03] LABS: Hemoglobin 14.1 g/dL (12.2-16.2); Mean Corpuscular Hemoglobin 32.3 pg (28.0-32.0); Mean Corpuscular Hgb Conc. 33.5 g/dL (32.0-36.0); Mean Corpuscular Volume 96.6 fL (80.0-100.0); Platelet Count (auto) 326 10^3/uL (140-450); Red Blood Cells 4.35 10^6/uL (4.0-5.20); White Blood Cell 3.4 10^3/uL (4.4-10.8)
[2018-10-05 12:05] LABS: Basophils % (manual) 0 (0.0-2.0); Blast Cells 0; Eosinophils % (manual) 0 (0-7); Metamyelocytes % 0; Myelocytes % 0; Promyelocytes % 0; Reactive Lymphocytes 0
[2018-10-05 12:17] LABS: Potassium 3.7 mmol/L (3.5-5.1)
[2018-10-05 12:20] LABS: Urine Bacteria FEW /hpf (None Seen); Urine Blood Negative /uL (Negative); Urine Mucus FEW (None Seen); Urine Specific Gravity 1.032 (1.001-1.035); Urine WBC 32 /hpf (0 - 5)
[2018-10-05 12:25] LABS: BUN/Creatinine Ratio 16.2; Bilirubin, Total 0.7 mg/dL (0.2-1.0); Calcium 8.7 mg/dL (8.5-10.1); Total Protein 6.9 g/dL (6.4-8.2)
[2018-10-05 13:25] LABS: Band Neutrophils % (manual) 4; Lymphocytes % (manual) 36 (10.0-50.0); Monocytes % (manual) 3 (0-12)
== END | disposition home or self-care (01) ==
LOC: LAB 11:23
PROVIDERS: ATTEND Internal Medicine
DX: C22.1 Intrahepatic bile duct carcinoma (principal)
CPT/HCPCS: 36415; 80053; 81001; 85007; 85027

== ENCOUNTER → 2018-10-06 | Outpatient (CLI) | payer BC | END | disposition home or self-care (01) | LOC: LAB 12:29 | PROVIDERS: ATTEND Internal Medicine | DX: C22.1 Intrahepatic bile duct carcinoma (principal) | CPT/HCPCS: 87493 ==

== ENCOUNTER → 2018-10-18 | Outpatient (CLI) | payer BC ==
[2018-10-18 13:11] LABS: Basophils # (auto) 0 uL; Basophils % (auto) 0.7 % (0.0-2.0); Eosinophils # (auto) 0.1 uL; Eosinophils % (auto) 1.9 % (0.0-7.0); Hematocrit 37.7 % (36.0-46.0); Hemoglobin 12.6 g/dL (12.2-16.2); Lymphocytes # (auto) 1.7 uL; Lymphocytes % (auto) 29.9 % (10.0-50.0); Mean Corpuscular Hemoglobin 32.5 pg (28.0-32.0); Mean Corpuscular Hgb Conc. 33.3 g/dL (32.0-36.0); Mean Corpuscular Volume 97.6 fL (80.0-100.0); Monocytes # (auto) 0.7 uL; Monocytes % (auto) 11.8 % (0.0-12.0); Neutrophils # (auto) 3.2 uL; Neutrophils % (auto) 55.7 % (37.0-80.0); Nucleated Red Blood Cells % 0.1 %; Platelet Count (auto) 358 10^3/uL (140-450); Red Blood Cells 3.86 10^6/uL (4.0-5.20); Red Cell Distribution Width 17.5 % (11.8-14.3); White Blood Cell 5.7 10^3/uL (4.4-10.8)
[2018-10-18 13:31] LABS: Albumin 2.2 g/dL (3.4-5.0); BUN/Creatinine Ratio 11.1; Potassium 3.4 mmol/L (3.5-5.1)
[2018-10-18 13:34] LABS: Bilirubin, Total 0.2 mg/dL (0.2-1.0); Total Protein 6.1 g/dL (6.4-8.2)
== END | disposition home or self-care (01) ==
LOC: LAB 12:01
DX: C22.1 Intrahepatic bile duct carcinoma (principal)
CPT/HCPCS: 36415; 80053; 82378; 85025

== ENCOUNTER → 2018-10-20 | Outpatient (CLI) | payer BC ==
[2018-10-20 12:47] LABS: Calcium 7.8 mg/dL (8.5-10.1); Potassium 3.6 mmol/L (3.5-5.1)
[2018-10-20 12:49] LABS: Albumin 1.9 g/dL (3.4-5.0); BUN/Creatinine Ratio 18.2
[2018-10-20 12:52] LABS: Bilirubin, Total 0.1 mg/dL (0.2-1.0); Total Protein 5.9 g/dL (6.4-8.2)
[2018-10-20 13:15] LABS: Basophils # (auto) 0.1 uL; Basophils % (auto) 1.3 % (0.0-2.0); Eosinophils # (auto) 0.1 uL; Eosinophils % (auto) 1.9 % (0.0-7.0); Hematocrit 36.2 % (36.0-46.0); Hemoglobin 11.9 g/dL (12.2-16.2); Lymphocytes # (auto) 1.3 uL; Lymphocytes % (auto) 20.3 % (10.0-50.0); Mean Corpuscular Hemoglobin 32.5 pg (28.0-32.0); Mean Corpuscular Hgb Conc. 32.9 g/dL (32.0-36.0); Mean Corpuscular Volume 98.8 fL (80.0-100.0); Monocytes # (auto) 0.7 uL; Monocytes % (auto) 10.9 % (0.0-12.0); Neutrophils # (auto) 4.1 uL; Neutrophils % (auto) 65.6 % (37.0-80.0); Nucleated Red Blood Cells % 0.1 %; Platelet Count (auto) 325 10^3/uL (140-450); Red Blood Cells 3.67 10^6/uL (4.0-5.20); White Blood Cell 6.2 10^3/uL (4.4-10.8)
== END | disposition home or self-care (01) ==
LOC: LAB 11:43
DX: C22.1 Intrahepatic bile duct carcinoma (principal)
CPT/HCPCS: 36415; 80053; 82378; 85025

== ENCOUNTER → 2018-12-06 | Outpatient (CLI) | payer BC ==
[2018-12-06 11:35] LABS: Basophils # (auto) 0 uL; Eosinophils # (auto) 0 uL; Hemoglobin 14.2 g/dL (12.2-16.2); Mean Corpuscular Hgb Conc. 34.2 g/dL (32.0-36.0); Monocytes # (auto) 0.3 uL; Neutrophils % (auto) 67.1 % (37.0-80.0); Nucleated Red Blood Cells % 0.1 %
[2018-12-06 11:38] LABS: Basophils % (auto) 0.6 % (0.0-2.0); Eosinophils % (auto) 0.6 % (0.0-7.0); Hematocrit 41.4 % (36.0-46.0); Lymphocytes # (auto) 1.2 uL; Lymphocytes % (auto) 24.5 % (10.0-50.0); Mean Corpuscular Hemoglobin 34.8 pg (28.0-32.0); Mean Corpuscular Volume 101.7 fL (80.0-100.0); Monocytes % (auto) 7.2 % (0.0-12.0); Neutrophils # (auto) 3.2 uL; Platelet Count (auto) 187 10^3/uL (140-450); Red Blood Cells 4.07 10^6/uL (4.0-5.20); Red Cell Distribution Width 17.3 % (11.8-14.3); White Blood Cell 4.7 10^3/uL (4.4-10.8)
[2018-12-06 11:56] LABS: Albumin 3.9 g/dL (3.4-5.0); Calcium 9.7 mg/dL (8.5-10.1); Potassium 4.3 mmol/L (3.5-5.1)
[2018-12-06 12:00] LABS: BUN/Creatinine Ratio 14.3; Bilirubin, Total 0.5 mg/dL (0.2-1.0); Total Protein 8.5 g/dL (6.4-8.2)
== END | disposition home or self-care (01) ==
LOC: LAB 10:51
DX: C22.1 Intrahepatic bile duct carcinoma (principal)
CPT/HCPCS: 36415; 80053; 82378; 85025

== ENCOUNTER → 2018-12-30 | Outpatient (CLI) | payer BC ==
[2018-12-30 11:45] LABS: Basophils # (auto) 0 uL; Eosinophils # (auto) 0.2 uL; Hematocrit 38.9 % (36.0-46.0); Hemoglobin 13.1 g/dL (12.2-16.2); Mean Corpuscular Hgb Conc. 33.8 g/dL (32.0-36.0); Monocytes # (auto) 0.6 uL; Neutrophils # (auto) 3.3 uL
[2018-12-30 11:49] LABS: Basophils % (auto) 0.7 % (0.0-2.0); Eosinophils % (auto) 2.6 % (0.0-7.0); Lymphocytes # (auto) 1.7 uL; Lymphocytes % (auto) 29.5 % (10.0-50.0); Mean Corpuscular Hemoglobin 35.1 pg (28.0-32.0); Mean Corpuscular Volume 103.8 fL (80.0-100.0); Neutrophils % (auto) 57.2 % (37.0-80.0); Nucleated Red Blood Cells % 0.1 %; Platelet Count (auto) 277 10^3/uL (140-450); Red Blood Cells 3.75 10^6/uL (4.0-5.20); Red Cell Distribution Width 14.7 % (11.8-14.3); White Blood Cell 5.8 10^3/uL (4.4-10.8)
[2018-12-30 12:13] LABS: Potassium 4.3 mmol/L (3.5-5.1)
[2018-12-30 12:23] LABS: Albumin 3.8 g/dL (3.4-5.0); BUN/Creatinine Ratio 19.3; Calcium 9.5 mg/dL (8.5-10.1); Total Protein 8.2 g/dL (6.4-8.2)
[2018-12-30 12:25] LABS: Bilirubin, Total 0.3 mg/dL (0.2-1.0)
== END | disposition home or self-care (01) ==
LOC: LAB 10:55
DX: C22.1 Intrahepatic bile duct carcinoma (principal)
CPT/HCPCS: 36415; 80053; 82378; 85025

== ENCOUNTER → 2019-01-03 | Outpatient (CLI) | payer BC | END | disposition home or self-care (01) | LOC: LAB 10:52 | PROVIDERS: ATTEND Internal Medicine | DX: C80.1 Malignant (primary) neoplasm, unspecified (principal) | CPT/HCPCS: 36415; 80061; 82565; 84439; 84443; 84520 ==

== ENCOUNTER → 2019-01-24 | Outpatient (CLI) | payer BC ==
[2019-01-24 14:48] LABS: Basophils # (auto) 0 uL; Basophils % (auto) 0.7 % (0.0-2.0); Eosinophils # (auto) 0.1 uL; Eosinophils % (auto) 2.2 % (0.0-7.0); Hematocrit 42.8 % (36.0-46.0); Hemoglobin 14.6 g/dL (12.2-16.2); Lymphocytes % (auto) 33.7 % (10.0-50.0); Mean Corpuscular Hemoglobin 34.9 pg (28.0-32.0); Mean Corpuscular Volume 102.7 fL (80.0-100.0); Monocytes # (auto) 0.5 uL; Monocytes % (auto) 8.2 % (0.0-12.0); Neutrophils # (auto) 3.3 uL; Neutrophils % (auto) 55.2 % (37.0-80.0); Nucleated Red Blood Cells % 0.2 %; Platelet Count (auto) 194 10^3/uL (140-450); Red Blood Cells 4.17 10^6/uL (4.0-5.20); Red Cell Distribution Width 16.5 % (11.8-14.3); White Blood Cell 5.9 10^3/uL (4.4-10.8)
[2019-01-24 15:09] LABS: Albumin 3.8 g/dL (3.4-5.0); Calcium 9.4 mg/dL (8.5-10.1); Potassium 3.9 mmol/L (3.5-5.1)
[2019-01-24 15:15] LABS: BUN/Creatinine Ratio 20.9; Bilirubin, Total 0.4 mg/dL (0.2-1.0); Total Protein 8.4 g/dL (6.4-8.2)
== END | disposition home or self-care (01) ==
LOC: LAB 13:54
DX: Z01.810 Encounter for preprocedural cardiovascular examination (principal); C22.1 Intrahepatic bile duct carcinoma
CPT/HCPCS: 36415; 80053; 85025

== ENCOUNTER → 2019-02-03 | Outpatient (CLI) | payer BC ==
[2019-02-03 10:24] LABS: Basophils # (auto) 0 uL; Basophils % (auto) 0.5 % (0.0-2.0); Eosinophils # (auto) 0.1 uL; Lymphocytes # (auto) 2.2 uL; Monocytes # (auto) 0.9 uL; Monocytes % (auto) 11.2 % (0.0-12.0); Red Blood Cells 4.08 10^6/uL (4.0-5.20); White Blood Cell 8.4 10^3/uL (4.4-10.8)
[2019-02-03 10:29] LABS: Eosinophils % (auto) 1.1 % (0.0-7.0); Hematocrit 41.7 % (36.0-46.0); Hemoglobin 14.2 g/dL (12.2-16.2); Lymphocytes % (auto) 25.7 % (10.0-50.0); Mean Corpuscular Hemoglobin 34.8 pg (28.0-32.0); Mean Corpuscular Volume 102.3 fL (80.0-100.0); Neutrophils # (auto) 5.2 uL; Neutrophils % (auto) 61.5 % (37.0-80.0); Platelet Count (auto) 196 10^3/uL (140-450); Red Cell Distribution Width 15.4 % (11.8-14.3)
[2019-02-03 10:48] LABS: Potassium 4.4 mmol/L (3.5-5.1)
[2019-02-03 10:57] LABS: Albumin 3.3 g/dL (3.4-5.0); Bilirubin, Total 0.2 mg/dL (0.2-1.0); Calcium 9.2 mg/dL (8.5-10.1); Total Protein 7.8 g/dL (6.4-8.2)
== END | disposition home or self-care (01) ==
LOC: LAB 09:55
DX: C22.1 Intrahepatic bile duct carcinoma (principal)
CPT/HCPCS: 36415; 80053; 82378; 85025

== ENCOUNTER → 2019-02-17 | Outpatient (CLI) | payer BC ==
[2019-02-17 11:14] LABS: Basophils # (auto) 0 uL; Eosinophils # (auto) 0.1 uL; Monocytes # (auto) 0.4 uL; White Blood Cell 5.4 10^3/uL (4.4-10.8)
[2019-02-17 11:19] LABS: Basophils % (auto) 0.2 % (0.0-2.0); Eosinophils % (auto) 1.2 % (0.0-7.0); Hematocrit 45.5 % (36.0-46.0); Hemoglobin 15.5 g/dL (12.2-16.2); Lymphocytes % (auto) 18.6 % (10.0-50.0); Mean Corpuscular Hemoglobin 34.7 pg (28.0-32.0); Mean Corpuscular Hgb Conc. 34.2 g/dL (32.0-36.0); Mean Corpuscular Volume 101.5 fL (80.0-100.0); Monocytes % (auto) 7.8 % (0.0-12.0); Neutrophils # (auto) 3.9 uL; Neutrophils % (auto) 72.2 % (37.0-80.0); Platelet Count (auto) 249 10^3/uL (140-450); Red Blood Cells 4.48 10^6/uL (4.0-5.20); Red Cell Distribution Width 15.6 % (11.8-14.3)
[2019-02-17 11:40] LABS: Albumin 3.5 g/dL (3.4-5.0); Calcium 9.3 mg/dL (8.5-10.1); Potassium 3.9 mmol/L (3.5-5.1)
[2019-02-17 11:42] LABS: BUN/Creatinine Ratio 17.9; Bilirubin, Total 0.4 mg/dL (0.2-1.0); Total Protein 8.7 g/dL (6.4-8.2)
== END | disposition home or self-care (01) ==
LOC: LAB 10:45
DX: C22.1 Intrahepatic bile duct carcinoma (principal)
CPT/HCPCS: 36415; 80053; 82378; 85025

== ENCOUNTER → 2019-05-10 | Outpatient (CLI) | payer BC ==
[2019-05-10 11:43] LABS: Basophils # (auto) 0 uL; Basophils % (auto) 0.7 % (0.0-2.0); Eosinophils # (auto) 0.1 uL; Eosinophils % (auto) 1.4 % (0.0-7.0); Hematocrit 43.9 % (36.0-46.0); Hemoglobin 14.6 g/dL (12.2-16.2); Lymphocytes # (auto) 2.2 uL; Lymphocytes % (auto) 32.8 % (10.0-50.0); Mean Corpuscular Hemoglobin 31.3 pg (28.0-32.0); Mean Corpuscular Hgb Conc. 33.3 g/dL (32.0-36.0); Mean Corpuscular Volume 94.1 fL (80.0-100.0); Monocytes # (auto) 0.5 uL; Monocytes % (auto) 7.4 % (0.0-12.0); Neutrophils # (auto) 3.8 uL; Neutrophils % (auto) 57.7 % (37.0-80.0); Platelet Count (auto) 226 10^3/uL (140-450); Red Blood Cells 4.66 10^6/uL (4.0-5.20); Red Cell Distribution Width 14.3 % (11.8-14.3); White Blood Cell 6.7 10^3/uL (4.4-10.8)
[2019-05-10 12:49] LABS: Potassium 3.7 mmol/L (3.5-5.1)
[2019-05-10 12:55] LABS: Albumin 3.5 g/dL (3.4-5.0); BUN/Creatinine Ratio 20.7; Bilirubin, Total 0.2 mg/dL (0.2-1.0); Calcium 9.9 mg/dL (8.5-10.1); Total Protein 8.6 g/dL (6.4-8.2)
== END | disposition home or self-care (01) ==
LOC: LAB 11:23
DX: Z51.11 Encounter for antineoplastic chemotherapy (principal); C22.1 Intrahepatic bile duct carcinoma
CPT/HCPCS: 36415; 80053; 82378; 85025; 86301

== ENCOUNTER → 2019-05-23 | Outpatient (CLI) | payer BC ==
[2019-05-23 13:23] LABS: Basophils # (auto) 0 uL; Basophils % (auto) 0.4 % (0.0-2.0); Eosinophils # (auto) 0.1 uL; Eosinophils % (auto) 1.2 % (0.0-7.0); Hematocrit 42.4 % (36.0-46.0); Lymphocytes # (auto) 2.2 uL; Lymphocytes % (auto) 50.4 % (10.0-50.0); Mean Corpuscular Hemoglobin 30.5 pg (28.0-32.0); Mean Corpuscular Volume 92.5 fL (80.0-100.0); Monocytes # (auto) 0.4 uL; Monocytes % (auto) 10.1 % (0.0-12.0); Neutrophils # (auto) 1.7 uL; Neutrophils % (auto) 37.9 % (37.0-80.0); Platelet Count (auto) 146 10^3/uL (140-450); Red Blood Cells 4.58 10^6/uL (4.0-5.20); Red Cell Distribution Width 13.8 % (11.8-14.3); White Blood Cell 4.4 10^3/uL (4.4-10.8)
[2019-05-23 13:48] LABS: Albumin 3.3 g/dL (3.4-5.0); Calcium 9.1 mg/dL (8.5-10.1); Potassium 4.4 mmol/L (3.5-5.1)
[2019-05-23 13:51] LABS: BUN/Creatinine Ratio 15.8; Bilirubin, Total 0.2 mg/dL (0.2-1.0)
== END | disposition home or self-care (01) ==
LOC: LAB 13:01
DX: Z51.11 Encounter for antineoplastic chemotherapy (principal); C22.1 Intrahepatic bile duct carcinoma
CPT/HCPCS: 36415; 80053; 82378; 85025; 86301

== ENCOUNTER → 2019-06-07 | Outpatient (CLI) | payer BC ==
[2019-06-07 08:24] LABS: Basophils # (auto) 0 uL; Basophils % (auto) 0.2 % (0.0-2.0); Eosinophils # (auto) 0 uL; Eosinophils % (auto) 0.6 % (0.0-7.0); Hematocrit 46.7 % (36.0-46.0); Hemoglobin 15.6 g/dL (12.2-16.2); Lymphocytes # (auto) 2.9 uL; Lymphocytes % (auto) 53.7 % (10.0-50.0); Mean Corpuscular Hemoglobin 30.6 pg (28.0-32.0); Mean Corpuscular Hgb Conc. 33.3 g/dL (32.0-36.0); Mean Corpuscular Volume 91.9 fL (80.0-100.0); Monocytes # (auto) 0.4 uL; Monocytes % (auto) 8.2 % (0.0-12.0); Neutrophils % (auto) 37.3 % (37.0-80.0); Nucleated Red Blood Cells % 0.1 %; Platelet Count (auto) 124 10^3/uL (140-450); Red Blood Cells 5.08 10^6/uL (4.0-5.20); Red Cell Distribution Width 14.4 % (11.8-14.3); White Blood Cell 5.3 10^3/uL (4.4-10.8)
[2019-06-07 08:45] LABS: Albumin 3.7 g/dL (3.4-5.0); Calcium 9.7 mg/dL (8.5-10.1); Potassium 3.5 mmol/L (3.5-5.1)
[2019-06-07 08:47] LABS: BUN/Creatinine Ratio 12.9; Bilirubin, Total 0.3 mg/dL (0.2-1.0); Total Protein 9.1 g/dL (6.4-8.2)
== END | disposition home or self-care (01) ==
LOC: LAB 08:04
DX: Z51.11 Encounter for antineoplastic chemotherapy (principal); C22.1 Intrahepatic bile duct carcinoma
CPT/HCPCS: 36415; 80053; 82378; 85025; 86301

== ENCOUNTER → 2019-06-21 | Outpatient (CLI) | payer BC ==
[2019-06-21 12:41] LABS: Basophils # (auto) 0 uL; Basophils % (auto) 0.2 % (0.0-2.0); Eosinophils # (auto) 0 uL; Eosinophils % (auto) 0.6 % (0.0-7.0); Hematocrit 40.7 % (36.0-46.0); Hemoglobin 13.7 g/dL (12.2-16.2); Lymphocytes # (auto) 1.6 uL; Lymphocytes % (auto) 36.3 % (10.0-50.0); Mean Corpuscular Hemoglobin 30.8 pg (28.0-32.0); Mean Corpuscular Hgb Conc. 33.6 g/dL (32.0-36.0); Mean Corpuscular Volume 91.9 fL (80.0-100.0); Monocytes # (auto) 0.6 uL; Monocytes % (auto) 12.7 % (0.0-12.0); Neutrophils # (auto) 2.2 uL; Neutrophils % (auto) 50.2 % (37.0-80.0); Nucleated Red Blood Cells % 0.1 %; Platelet Count (auto) 88 10^3/uL (140-450); Red Blood Cells 4.43 10^6/uL (4.0-5.20); White Blood Cell 4.3 10^3/uL (4.4-10.8)
[2019-06-21 12:51] LABS: Albumin 3.1 g/dL (3.4-5.0); Potassium 3.6 mmol/L (3.5-5.1)
[2019-06-21 12:56] LABS: BUN/Creatinine Ratio 18.5; Bilirubin, Total 0.2 mg/dL (0.2-1.0); Total Protein 8.3 g/dL (6.4-8.2)
== END | disposition home or self-care (01) ==
LOC: LAB 11:28
DX: Z51.11 Encounter for antineoplastic chemotherapy (principal); C22.1 Intrahepatic bile duct carcinoma
CPT/HCPCS: 36415; 80053; 82378; 85025; 86301

== ENCOUNTER → 2019-06-29 | Outpatient (CLI) | payer BC | END | disposition home or self-care (01) | LOC: XY 07:44 | PROVIDERS: ATTEND Internal Medicine | DX: C80.1 Malignant (primary) neoplasm, unspecified (principal) | CPT/HCPCS: 78306; A9503 ==

== ENCOUNTER → 2019-07-12 | Outpatient (CLI) | payer BC ==
[2019-07-12 09:55] LABS: Hematocrit 41.5 % (36.0-46.0); Hemoglobin 14.2 g/dL (12.2-16.2); Mean Corpuscular Hemoglobin 31.8 pg (28.0-32.0); Mean Corpuscular Hgb Conc. 34.2 g/dL (32.0-36.0); Platelet Count (auto) 177 10^3/uL (140-450); Red Blood Cells 4.46 10^6/uL (4.0-5.20); Red Cell Distribution Width 19.5 % (11.8-14.3); White Blood Cell 3.4 10^3/uL (4.4-10.8)
[2019-07-12 09:59] LABS: Basophils % (manual) 0 (0.0-2.0); Blast Cells 0; Eosinophils % (manual) 0 (0-7); Metamyelocytes % 0; Myelocytes % 0; Promyelocytes % 0; Reactive Lymphocytes 0
[2019-07-12 10:35] LABS: Calcium 10.2 mg/dL (8.5-10.1); Potassium 4.5 mmol/L (3.5-5.1)
[2019-07-12 10:41] LABS: Albumin 3.3 g/dL (3.4-5.0); BUN/Creatinine Ratio 22.4; Bilirubin, Total 0.3 mg/dL (0.2-1.0); Total Protein 8.9 g/dL (6.4-8.2)
[2019-07-12 10:47] LABS: Band Neutrophils % (manual) 2; Lymphocytes % (manual) 39 (10.0-50.0); Monocytes % (manual) 20 (0-12)
== END | disposition home or self-care (01) ==
LOC: LAB 09:41
DX: Z51.11 Encounter for antineoplastic chemotherapy (principal); C22.1 Intrahepatic bile duct carcinoma
CPT/HCPCS: 36415; 80053; 82378; 85007; 85027; 86301

== ENCOUNTER → 2019-07-26 | Outpatient (CLI) | payer BC ==
[2019-07-26 07:56] LABS: Basophils # (auto) 0 10 ^3/uL (0-0.2); Basophils % (auto) 0.5 % (0.0-2.0); Eosinophils # (auto) 0 10 ^3/uL (0-0.8); Eosinophils % (auto) 0.6 % (0.0-7.0); Hematocrit 40.8 % (36.0-46.0); Hemoglobin 13.6 g/dL (12.2-16.2); Lymphocytes # (auto) 1.6 10 ^3/uL (0.4-5.4); Lymphocytes % (auto) 35.5 % (10.0-50.0); Mean Corpuscular Hemoglobin 31.3 pg (28.0-32.0); Mean Corpuscular Hgb Conc. 33.5 g/dL (32.0-36.0); Mean Corpuscular Volume 93.4 fL (80.0-100.0); Monocytes # (auto) 0.5 10 ^3/uL (0-1.3); Monocytes % (auto) 11.4 % (0.0-12.0); Neutrophils # (auto) 2.3 10 ^3/uL (1.6-8.6); Nucleated Red Blood Cells % 0.1 %; Red Blood Cells 4.36 10^6/uL (4.0-5.20); Red Cell Distribution Width 19.2 % (11.8-14.3); White Blood Cell 4.4 10^3/uL (4.4-10.8)
[2019-07-26 07:58] LABS: Platelet Count (auto) 100 10^3/uL (140-450)
[2019-07-26 08:13] LABS: Albumin 3.1 g/dL (3.4-5.0); Calcium 8.6 mg/dL (8.5-10.1); Potassium 3.8 mmol/L (3.5-5.1)
[2019-07-26 08:16] LABS: BUN/Creatinine Ratio 20.7; Bilirubin, Total 0.3 mg/dL (0.2-1.0); Total Protein 8.3 g/dL (6.4-8.2)
== END | disposition home or self-care (01) ==
LOC: LAB 07:23
DX: Z51.11 Encounter for antineoplastic chemotherapy (principal); C22.1 Intrahepatic bile duct carcinoma
CPT/HCPCS: 36415; 80053; 82378; 85025; 86301

== ENCOUNTER → 2019-08-03 | Outpatient (CLI) | payer BC | END | disposition home or self-care (01) | LOC: LAB 09:47 | PROVIDERS: ATTEND Internal Medicine | DX: C22.1 Intrahepatic bile duct carcinoma (principal); C79.51 Secondary malignant neoplasm of bone | CPT/HCPCS: 36415; 82565; 84520 ==

== ENCOUNTER → 2019-08-09 | Outpatient (CLI) | payer BC ==
[2019-08-09 10:19] LABS: Basophils # (auto) 0 10 ^3/uL (0-0.2); Basophils % (auto) 0.4 % (0.0-2.0); Eosinophils # (auto) 0.1 10 ^3/uL (0-0.8); Eosinophils % (auto) 1.8 % (0.0-7.0); Hematocrit 38.2 % (36.0-46.0); Lymphocytes # (auto) 1.5 10 ^3/uL (0.4-5.4); Lymphocytes % (auto) 31.9 % (10.0-50.0); Mean Corpuscular Hemoglobin 32.2 pg (28.0-32.0); Mean Corpuscular Hgb Conc. 34.1 g/dL (32.0-36.0); Mean Corpuscular Volume 94.4 fL (80.0-100.0); Monocytes # (auto) 0.7 10 ^3/uL (0-1.3); Monocytes % (auto) 14.2 % (0.0-12.0); Neutrophils # (auto) 2.5 10 ^3/uL (1.6-8.6); Neutrophils % (auto) 51.7 % (37.0-80.0); Nucleated Red Blood Cells % 0.1 %; Platelet Count (auto) 109 10^3/uL (140-450); Red Blood Cells 4.05 10^6/uL (4.0-5.20); White Blood Cell 4.8 10^3/uL (4.4-10.8)
[2019-08-09 10:22] LABS: Red Cell Distribution Width 20.3 % (11.8-14.3)
[2019-08-09 10:36] LABS: Albumin 3.1 g/dL (3.4-5.0); Calcium 8.7 mg/dL (8.5-10.1); Potassium 4.4 mmol/L (3.5-5.1)
[2019-08-09 10:39] LABS: BUN/Creatinine Ratio 17.3; Bilirubin, Total 0.3 mg/dL (0.2-1.0); Total Protein 8.1 g/dL (6.4-8.2)
== END | disposition home or self-care (01) ==
LOC: LAB 09:58
DX: Z51.11 Encounter for antineoplastic chemotherapy (principal); C22.1 Intrahepatic bile duct carcinoma
CPT/HCPCS: 36415; 80053; 82378; 85025; 86301

== ENCOUNTER → 2019-08-23 | Outpatient (CLI) | payer BC ==
[2019-08-23 10:14] LABS: Basophils # (auto) 0 10 ^3/uL (0-0.2); Basophils % (auto) 0.4 % (0.0-2.0); Eosinophils # (auto) 0 10 ^3/uL (0-0.8); Eosinophils % (auto) 0.6 % (0.0-7.0); Hematocrit 42.1 % (36.0-46.0); Lymphocytes # (auto) 1.6 10 ^3/uL (0.4-5.4); Lymphocytes % (auto) 33.3 % (10.0-50.0); Mean Corpuscular Hemoglobin 32.8 pg (28.0-32.0); Mean Corpuscular Hgb Conc. 33.4 g/dL (32.0-36.0); Mean Corpuscular Volume 98.3 fL (80.0-100.0); Monocytes # (auto) 0.6 10 ^3/uL (0-1.3); Monocytes % (auto) 13.6 % (0.0-12.0); Neutrophils # (auto) 2.5 10 ^3/uL (1.6-8.6); Neutrophils % (auto) 52.1 % (37.0-80.0); Nucleated Red Blood Cells % 0.2 %; Platelet Count (auto) 102 10^3/uL (140-450); Red Blood Cells 4.28 10^6/uL (4.0-5.20); White Blood Cell 4.8 10^3/uL (4.4-10.8)
[2019-08-23 10:50] LABS: Potassium 4.1 mmol/L (3.5-5.1)
[2019-08-23 10:58] LABS: Albumin 3.3 g/dL (3.4-5.0); BUN/Creatinine Ratio 16.9; Bilirubin, Total 0.6 mg/dL (0.2-1.0); Calcium 9.6 mg/dL (8.5-10.1); Total Protein 8.9 g/dL (6.4-8.2)
== END | disposition home or self-care (01) ==
LOC: LAB 09:47
DX: Z51.11 Encounter for antineoplastic chemotherapy (principal); C22.1 Intrahepatic bile duct carcinoma
CPT/HCPCS: 36415; 80053; 82378; 85025; 86301

== ENCOUNTER → 2019-09-06 | Outpatient (CLI) | payer BC ==
[2019-09-06 10:30] LABS: Basophils # (auto) 0 10 ^3/uL (0-0.2); Basophils % (auto) 0.3 % (0.0-2.0); Eosinophils # (auto) 0 10 ^3/uL (0-0.8); Eosinophils % (auto) 0.4 % (0.0-7.0); Hematocrit 38.3 % (36.0-46.0); Hemoglobin 12.7 g/dL (12.2-16.2); Lymphocytes # (auto) 1.1 10 ^3/uL (0.4-5.4); Lymphocytes % (auto) 27.8 % (10.0-50.0); Mean Corpuscular Hemoglobin 33.7 pg (28.0-32.0); Mean Corpuscular Hgb Conc. 33.3 g/dL (32.0-36.0); Mean Corpuscular Volume 101.2 fL (80.0-100.0); Monocytes # (auto) 0.6 10 ^3/uL (0-1.3); Monocytes % (auto) 14.2 % (0.0-12.0); Neutrophils # (auto) 2.3 10 ^3/uL (1.6-8.6); Neutrophils % (auto) 57.3 % (37.0-80.0); Platelet Count (auto) 90 10^3/uL (140-450); Red Blood Cells 3.78 10^6/uL (4.0-5.20); Red Cell Distribution Width 18.5 % (11.8-14.3); White Blood Cell 4.1 10^3/uL (4.4-10.8)
[2019-09-06 11:39] LABS: Potassium 4.2 mmol/L (3.5-5.1)
[2019-09-06 12:00] LABS: Albumin 2.8 g/dL (3.4-5.0); BUN/Creatinine Ratio 18.8; Bilirubin, Total 0.3 mg/dL (0.2-1.0); Calcium 8.9 mg/dL (8.5-10.1); Total Protein 8.2 g/dL (6.4-8.2)
== END | disposition home or self-care (01) ==
LOC: LAB 10:15
DX: Z51.11 Encounter for antineoplastic chemotherapy (principal); C22.1 Intrahepatic bile duct carcinoma
CPT/HCPCS: 36415; 80053; 82378; 85025; 86301

== ENCOUNTER → 2019-09-20 | Outpatient (CLI) | payer BC ==
[2019-09-20 09:24] LABS: Basophils # (auto) 0 10 ^3/uL (0-0.2); Eosinophils # (auto) 0 10 ^3/uL (0-0.8); Hemoglobin 12.2 g/dL (12.2-16.2); Lymphocytes # (auto) 0.8 10 ^3/uL (0.4-5.4); Monocytes # (auto) 0.4 10 ^3/uL (0-1.3); Monocytes % (auto) 11.3 % (0.0-12.0); Nucleated Red Blood Cells % 0.1 %
[2019-09-20 09:27] LABS: Basophils % (auto) 0.4 % (0.0-2.0); Eosinophils % (auto) 0.3 % (0.0-7.0); Hematocrit 36.2 % (36.0-46.0); Lymphocytes % (auto) 25.6 % (10.0-50.0); Mean Corpuscular Hemoglobin 34.8 pg (28.0-32.0); Mean Corpuscular Hgb Conc. 33.7 g/dL (32.0-36.0); Mean Corpuscular Volume 103.2 fL (80.0-100.0); Neutrophils # (auto) 1.9 10 ^3/uL (1.6-8.6); Neutrophils % (auto) 62.4 % (37.0-80.0); Red Cell Distribution Width 16.5 % (11.8-14.3); White Blood Cell 3.1 10^3/uL (4.4-10.8)
[2019-09-20 09:28] LABS: Platelet Count (auto) 71 10^3/uL (140-450)
[2019-09-20 10:03] LABS: Albumin 2.9 g/dL (3.4-5.0); BUN/Creatinine Ratio 18.4; Calcium 8.8 mg/dL (8.5-10.1); Potassium 4.3 mmol/L (3.5-5.1)
[2019-09-20 10:09] LABS: Bilirubin, Total 0.3 mg/dL (0.2-1.0)
== END | disposition home or self-care (01) ==
LOC: LAB 09:01
DX: C22.1 Intrahepatic bile duct carcinoma (principal); Z51.11 Encounter for antineoplastic chemotherapy
CPT/HCPCS: 36415; 80053; 82378; 85025; 86301

== ENCOUNTER → 2019-09-27 | Outpatient (CLI) | payer BC ==
[2019-09-27 08:39] LABS: Hematocrit 38.3 % (36.0-46.0); Mean Corpuscular Hemoglobin 35.3 pg (28.0-32.0); Mean Corpuscular Hgb Conc. 33.8 g/dL (32.0-36.0); Mean Corpuscular Volume 104.6 fL (80.0-100.0); Platelet Count (auto) 113 10^3/uL (140-450); Red Blood Cells 3.67 10^6/uL (4.0-5.20); Red Cell Distribution Width 16.9 % (11.8-14.3); White Blood Cell 2.1 10^3/uL (4.4-10.8)
[2019-09-27 08:42] LABS: Band Neutrophils % (manual) 0; Basophils % (manual) 0 (0.0-2.0); Blast Cells 0; Metamyelocytes % 0; Myelocytes % 0; Promyelocytes % 0; Reactive Lymphocytes 0
[2019-09-27 08:56] LABS: Eosinophils % (manual) 2 (0-7); Lymphocytes % (manual) 56 (10.0-50.0); Monocytes % (manual) 8 (0-12)
[2019-09-27 09:21] LABS: Calcium 8.9 mg/dL (8.5-10.1); Potassium 3.9 mmol/L (3.5-5.1)
[2019-09-27 09:26] LABS: BUN/Creatinine Ratio 15.3; Bilirubin, Total 0.3 mg/dL (0.2-1.0); Total Protein 8.5 g/dL (6.4-8.2)
== END | disposition home or self-care (01) ==
LOC: LAB 08:22
DX: C22.1 Intrahepatic bile duct carcinoma (principal); Z51.11 Encounter for antineoplastic chemotherapy
CPT/HCPCS: 36415; 80053; 82378; 85007; 85027; 86301

== ENCOUNTER → 2019-10-05 | Outpatient (CLI) | payer BC | END | disposition home or self-care (01) | LOC: LAB 09:23 | PROVIDERS: ATTEND Internal Medicine | DX: C22.1 Intrahepatic bile duct carcinoma (principal) | CPT/HCPCS: 36415; 82565; 84520 ==

== ENCOUNTER → 2019-10-13 | Outpatient (CLI) | payer BC ==
[2019-10-13 09:47] LABS: Basophils # (auto) 0 10 ^3/uL (0-0.2); Eosinophils # (auto) 0 10 ^3/uL (0-0.8); Lymphocytes # (auto) 1.2 10 ^3/uL (0.4-5.4); Mean Corpuscular Hemoglobin 35.2 pg (28.0-32.0); Monocytes # (auto) 0.4 10 ^3/uL (0-1.3); Neutrophils # (auto) 1.3 10 ^3/uL (1.6-8.6); Platelet Count (auto) 82 10^3/uL (140-450); Red Blood Cells 3.98 10^6/uL (4.0-5.20)
[2019-10-13 09:50] LABS: Basophils % (auto) 0.5 % (0.0-2.0); Eosinophils % (auto) 0.7 % (0.0-7.0); Hematocrit 40.8 % (36.0-46.0); Lymphocytes % (auto) 42.5 % (10.0-50.0); Mean Corpuscular Hgb Conc. 34.4 g/dL (32.0-36.0); Mean Corpuscular Volume 102.4 fL (80.0-100.0); Monocytes % (auto) 13.7 % (0.0-12.0); Neutrophils % (auto) 42.6 % (37.0-80.0); Nucleated Red Blood Cells % 0.2 %; Red Cell Distribution Width 15.3 % (11.8-14.3); White Blood Cell 2.9 10^3/uL (4.4-10.8)
[2019-10-13 10:12] LABS: Albumin 3.3 g/dL (3.4-5.0); Calcium 9.3 mg/dL (8.5-10.1); Potassium 4.2 mmol/L (3.5-5.1)
[2019-10-13 10:16] LABS: BUN/Creatinine Ratio 14.1; Bilirubin, Total 0.5 mg/dL (0.2-1.0); Total Protein 9.2 g/dL (6.4-8.2)
== END | disposition home or self-care (01) ==
LOC: LAB 09:12
DX: C22.1 Intrahepatic bile duct carcinoma (principal); Z51.11 Encounter for antineoplastic chemotherapy
CPT/HCPCS: 36415; 80053; 82378; 85025; 86301

== ENCOUNTER → 2019-10-17 | Outpatient (CLI) | payer BC | END | disposition home or self-care (01) | LOC: LAB 16:00 | PROVIDERS: ATTEND Physician Assistant | DX: Z03.818 Encounter for observation for suspected exposure to other biological agents ruled out (principal) | CPT/HCPCS: 87635 ==

== ENCOUNTER → 2019-10-17 | Outpatient (CLI) | payer BC ==
[2019-10-17 12:46] LABS: Basophils # (auto) 0 10 ^3/uL (0-0.2); Eosinophils # (auto) 0 10 ^3/uL (0-0.8); Hemoglobin 13.2 g/dL (12.2-16.2); Lymphocytes # (auto) 1.2 10 ^3/uL (0.4-5.4); Neutrophils # (auto) 1.6 10 ^3/uL (1.6-8.6); White Blood Cell 3.3 10^3/uL (4.4-10.8)
[2019-10-17 12:48] LABS: Basophils % (auto) 0.6 % (0.0-2.0); Eosinophils % (auto) 0.6 % (0.0-7.0); Hematocrit 39.4 % (36.0-46.0); Lymphocytes % (auto) 36.7 % (10.0-50.0); Mean Corpuscular Hemoglobin 34.7 pg (28.0-32.0); Mean Corpuscular Hgb Conc. 33.6 g/dL (32.0-36.0); Mean Corpuscular Volume 103.4 fL (80.0-100.0); Monocytes # (auto) 0.5 10 ^3/uL (0-1.3); Monocytes % (auto) 14.4 % (0.0-12.0); Neutrophils % (auto) 47.7 % (37.0-80.0); Nucleated Red Blood Cells % 0.2 %; Platelet Count (auto) 132 10^3/uL (140-450); Red Blood Cells 3.81 10^6/uL (4.0-5.20); Red Cell Distribution Width 15.3 % (11.8-14.3)
== END | disposition home or self-care (01) ==
LOC: LAB 12:20
PROVIDERS: ATTEND Internal Medicine
DX: R50.9 Fever, unspecified (principal)
CPT/HCPCS: 36415; 83615; 85025; 87040; 87086

== ENCOUNTER → 2019-11-03 | Outpatient (CLI) | payer BC ==
[2019-11-03 08:53] LABS: Basophils # (auto) 0 10 ^3/uL (0-0.2); Eosinophils # (auto) 0.1 10 ^3/uL (0-0.8); Monocytes # (auto) 0.4 10 ^3/uL (0-1.3); Nucleated Red Blood Cells % 0.1 %; Red Blood Cells 3.71 10^6/uL (4.0-5.20)
[2019-11-03 08:55] LABS: Basophils % (auto) 0.5 % (0.0-2.0); Eosinophils % (auto) 1.7 % (0.0-7.0); Hematocrit 38.5 % (36.0-46.0); Hemoglobin 13.1 g/dL (12.2-16.2); Lymphocytes # (auto) 0.9 10 ^3/uL (0.4-5.4); Lymphocytes % (auto) 20.4 % (10.0-50.0); Mean Corpuscular Hemoglobin 35.3 pg (28.0-32.0); Mean Corpuscular Hgb Conc. 34.1 g/dL (32.0-36.0); Mean Corpuscular Volume 103.6 fL (80.0-100.0); Monocytes % (auto) 9.1 % (0.0-12.0); Neutrophils # (auto) 2.9 10 ^3/uL (1.6-8.6); Neutrophils % (auto) 68.3 % (37.0-80.0); Platelet Count (auto) 145 10^3/uL (140-450); White Blood Cell 4.3 10^3/uL (4.4-10.8)
[2019-11-03 09:17] LABS: Albumin 3.4 g/dL (3.4-5.0); Calcium 9.3 mg/dL (8.5-10.1); Potassium 3.7 mmol/L (3.5-5.1)
[2019-11-03 09:20] LABS: BUN/Creatinine Ratio 22.6; Bilirubin, Total 0.7 mg/dL (0.2-1.0); Total Protein 8.8 g/dL (6.4-8.2)
== END | disposition home or self-care (01) ==
LOC: LAB 08:28
DX: Z51.11 Encounter for antineoplastic chemotherapy (principal); C22.1 Intrahepatic bile duct carcinoma; C79.51 Secondary malignant neoplasm of bone; D70.1 Agranulocytosis secondary to cancer chemotherapy; T45.1X5A Adverse effect of antineoplastic and immunosuppressive drugs, initial encounter
CPT/HCPCS: 36415; 80053; 82378; 85025; 86301

== ENCOUNTER → 2019-11-24 | Outpatient (CLI) | payer BC ==
[2019-11-24 08:38] LABS: Basophils # (auto) 0 10 ^3/uL (0-0.2); Eosinophils # (auto) 0.1 10 ^3/uL (0-0.8); Hemoglobin 11.6 g/dL (12.2-16.2); Lymphocytes # (auto) 0.9 10 ^3/uL (0.4-5.4); Monocytes # (auto) 0.4 10 ^3/uL (0-1.3); Neutrophils # (auto) 2.7 10 ^3/uL (1.6-8.6); White Blood Cell 4.1 10^3/uL (4.4-10.8)
[2019-11-24 08:40] LABS: Basophils % (auto) 0.5 % (0.0-2.0); Eosinophils % (auto) 1.5 % (0.0-7.0); Hematocrit 34.4 % (36.0-46.0); Lymphocytes % (auto) 21.4 % (10.0-50.0); Mean Corpuscular Hemoglobin 35.9 pg (28.0-32.0); Mean Corpuscular Hgb Conc. 33.9 g/dL (32.0-36.0); Mean Corpuscular Volume 105.9 fL (80.0-100.0); Monocytes % (auto) 10.1 % (0.0-12.0); Neutrophils % (auto) 66.5 % (37.0-80.0); Nucleated Red Blood Cells % 0.3 %; Platelet Count (auto) 155 10^3/uL (140-450); Red Blood Cells 3.25 10^6/uL (4.0-5.20); Red Cell Distribution Width 15.9 % (11.8-14.3)
[2019-11-24 09:00] LABS: Albumin 3.3 g/dL (3.4-5.0); Calcium 8.9 mg/dL (8.5-10.1); Potassium 3.3 mmol/L (3.5-5.1)
[2019-11-24 09:03] LABS: BUN/Creatinine Ratio 16.3; Bilirubin, Total 0.6 mg/dL (0.2-1.0); Total Protein 7.9 g/dL (6.4-8.2)
== END | disposition home or self-care (01) ==
LOC: LAB 07:53
DX: Z51.11 Encounter for antineoplastic chemotherapy (principal); C22.1 Intrahepatic bile duct carcinoma; C79.51 Secondary malignant neoplasm of bone; D70.1 Agranulocytosis secondary to cancer chemotherapy; T45.1X5A Adverse effect of antineoplastic and immunosuppressive drugs, initial encounter; Y92.89 Other specified places as the place of occurrence of the external cause
CPT/HCPCS: 36415; 80053; 82378; 85025; 86301

== ENCOUNTER → 2019-12-09 | Outpatient (CLI) | payer BC | END | disposition home or self-care (01) | LOC: LAB 08:31 | PROVIDERS: ATTEND Internal Medicine | DX: Z01.818 Encounter for other preprocedural examination (principal) | CPT/HCPCS: 36415; 82565; 84520 ==

== ENCOUNTER → 2020-01-10 | Outpatient (CLI) | payer BC ==
[2020-01-10 08:12] LABS: Basophils # (auto) 0 10 ^3/uL (0-0.2); Eosinophils # (auto) 0.1 10 ^3/uL (0-0.8); Hemoglobin 13.1 g/dL (12.2-16.2); Monocytes # (auto) 0.4 10 ^3/uL (0-1.3)
[2020-01-10 08:14] LABS: Basophils % (auto) 0.7 % (0.0-2.0); Eosinophils % (auto) 1.8 % (0.0-7.0); Hematocrit 38.8 % (36.0-46.0); Lymphocytes # (auto) 1.1 10 ^3/uL (0.4-5.4); Mean Corpuscular Hemoglobin 35.3 pg (28.0-32.0); Mean Corpuscular Hgb Conc. 33.8 g/dL (32.0-36.0); Mean Corpuscular Volume 104.7 fL (80.0-100.0); Monocytes % (auto) 8.4 % (0.0-12.0); Neutrophils # (auto) 3.3 10 ^3/uL (1.6-8.6); Neutrophils % (auto) 66.1 % (37.0-80.0); Nucleated Red Blood Cells % 0.2 %; Platelet Count (auto) 133 10^3/uL (140-450); Red Cell Distribution Width 15.1 % (11.8-14.3)
[2020-01-10 09:53] LABS: Albumin 3.5 g/dL (3.4-5.0); BUN/Creatinine Ratio 20.3; Calcium 9.3 mg/dL (8.5-10.1); Potassium 4.1 mmol/L (3.5-5.1)
[2020-01-10 09:55] LABS: Bilirubin, Total 0.4 mg/dL (0.2-1.0); Total Protein 8.4 g/dL (6.4-8.2)
== END | disposition home or self-care (01) ==
LOC: LAB 07:46
DX: Z51.11 Encounter for antineoplastic chemotherapy (principal); C22.1 Intrahepatic bile duct carcinoma; C79.51 Secondary malignant neoplasm of bone; D70.1 Agranulocytosis secondary to cancer chemotherapy; T45.1X5A Adverse effect of antineoplastic and immunosuppressive drugs, initial encounter; Y92.89 Other specified places as the place of occurrence of the external cause
CPT/HCPCS: 36415; 80053; 85025

== ENCOUNTER → 2020-01-24 | Outpatient (CLI) | payer BC ==
[2020-01-24 08:34] LABS: Basophils # (auto) 0 10 ^3/uL (0-0.2); Eosinophils # (auto) 0.1 10 ^3/uL (0-0.8); Mean Corpuscular Hgb Conc. 34.3 g/dL (32.0-36.0); Monocytes # (auto) 0.5 10 ^3/uL (0-1.3); Monocytes % (auto) 10.6 % (0.0-12.0); Nucleated Red Blood Cells % 0.1 %; Red Cell Distribution Width 14.9 % (11.8-14.3); White Blood Cell 4.5 10^3/uL (4.4-10.8)
[2020-01-24 08:37] LABS: Basophils % (auto) 0.6 % (0.0-2.0); Eosinophils % (auto) 1.5 % (0.0-7.0); Hematocrit 36.7 % (36.0-46.0); Hemoglobin 12.6 g/dL (12.2-16.2); Lymphocytes # (auto) 1.4 10 ^3/uL (0.4-5.4); Lymphocytes % (auto) 30.3 % (10.0-50.0); Mean Corpuscular Hemoglobin 35.2 pg (28.0-32.0); Mean Corpuscular Volume 102.8 fL (80.0-100.0); Neutrophils # (auto) 2.5 10 ^3/uL (1.6-8.6); Platelet Count (auto) 148 10^3/uL (140-450); Red Blood Cells 3.57 10^6/uL (4.0-5.20)
[2020-01-24 09:13] LABS: Albumin 3.3 g/dL (3.4-5.0); BUN/Creatinine Ratio 25.6; Calcium 9.3 mg/dL (8.5-10.1); Potassium 4.3 mmol/L (3.5-5.1)
[2020-01-24 09:15] LABS: Bilirubin, Total 0.3 mg/dL (0.2-1.0)
== END | disposition home or self-care (01) ==
LOC: LAB 08:04
DX: Z51.11 Encounter for antineoplastic chemotherapy (principal); C22.1 Intrahepatic bile duct carcinoma; C79.51 Secondary malignant neoplasm of bone; D70.1 Agranulocytosis secondary to cancer chemotherapy; T45.1X5A Adverse effect of antineoplastic and immunosuppressive drugs, initial encounter; Y92.89 Other specified places as the place of occurrence of the external cause
CPT/HCPCS: 36415; 80053; 82378; 85025; 86301

== ENCOUNTER → 2020-02-07 | Outpatient (CLI) | payer BC ==
[2020-02-07 08:46] LABS: Basophils # (auto) 0 10 ^3/uL (0-0.2); Eosinophils # (auto) 0.1 10 ^3/uL (0-0.8); Monocytes # (auto) 0.5 10 ^3/uL (0-1.3); Neutrophils # (auto) 2.9 10 ^3/uL (1.6-8.6); Nucleated Red Blood Cells % 0.1 %; White Blood Cell 4.8 10^3/uL (4.4-10.8)
[2020-02-07 08:48] LABS: Basophils % (auto) 0.7 % (0.0-2.0); Eosinophils % (auto) 1.8 % (0.0-7.0); Hematocrit 40.4 % (36.0-46.0); Hemoglobin 13.4 g/dL (12.2-16.2); Lymphocytes # (auto) 1.3 10 ^3/uL (0.4-5.4); Lymphocytes % (auto) 26.4 % (10.0-50.0); Mean Corpuscular Hemoglobin 33.9 pg (28.0-32.0); Mean Corpuscular Hgb Conc. 33.1 g/dL (32.0-36.0); Mean Corpuscular Volume 102.4 fL (80.0-100.0); Monocytes % (auto) 10.9 % (0.0-12.0); Neutrophils % (auto) 60.2 % (37.0-80.0); Platelet Count (auto) 145 10^3/uL (140-450); Red Blood Cells 3.94 10^6/uL (4.0-5.20); Red Cell Distribution Width 14.4 % (11.8-14.3)
[2020-02-07 08:53] LABS: Albumin 3.6 g/dL (3.4-5.0); Calcium 9.4 mg/dL (8.5-10.1)
[2020-02-07 08:56] LABS: BUN/Creatinine Ratio 22.8; Bilirubin, Total 0.3 mg/dL (0.2-1.0); Total Protein 8.5 g/dL (6.4-8.2)
== END | disposition home or self-care (01) ==
LOC: LAB 07:56
DX: Z51.11 Encounter for antineoplastic chemotherapy (principal); C22.1 Intrahepatic bile duct carcinoma; C79.51 Secondary malignant neoplasm of bone; T45.1X5A Adverse effect of antineoplastic and immunosuppressive drugs, initial encounter; D50.1 Sideropenic dysphagia; Y92.89 Other specified places as the place of occurrence of the external cause
CPT/HCPCS: 36415; 80053; 82378; 85025; 86301

== ENCOUNTER → 2020-02-21 | Outpatient (CLI) | payer BC ==
[2020-02-21 08:04] LABS: Basophils # (auto) 0 10 ^3/uL (0-0.2); Basophils % (auto) 0.6 % (0.0-2.0); Eosinophils # (auto) 0.1 10 ^3/uL (0-0.8); Eosinophils % (auto) 1.6 % (0.0-7.0); Hematocrit 43.4 % (36.0-46.0); Hemoglobin 14.3 g/dL (12.2-16.2); Lymphocytes # (auto) 1.2 10 ^3/uL (0.4-5.4); Mean Corpuscular Hemoglobin 33.4 pg (28.0-32.0); Mean Corpuscular Hgb Conc. 32.9 g/dL (32.0-36.0); Mean Corpuscular Volume 101.5 fL (80.0-100.0); Monocytes # (auto) 0.4 10 ^3/uL (0-1.3); Monocytes % (auto) 9.8 % (0.0-12.0); Neutrophils # (auto) 2.8 10 ^3/uL (1.6-8.6); Nucleated Red Blood Cells % 0.1 %; Platelet Count (auto) 154 10^3/uL (140-450); Red Blood Cells 4.27 10^6/uL (4.0-5.20); Red Cell Distribution Width 14.6 % (11.8-14.3); White Blood Cell 4.6 10^3/uL (4.4-10.8)
[2020-02-21 08:39] LABS: Albumin 3.8 g/dL (3.4-5.0); Calcium 9.7 mg/dL (8.5-10.1)
[2020-02-21 08:44] LABS: BUN/Creatinine Ratio 22.7; Bilirubin, Total 0.3 mg/dL (0.2-1.0); Total Protein 8.6 g/dL (6.4-8.2)
== END | disposition home or self-care (01) ==
LOC: LAB 07:32
DX: Z51.11 Encounter for antineoplastic chemotherapy (principal); C22.1 Intrahepatic bile duct carcinoma; C79.51 Secondary malignant neoplasm of bone; D70.1 Agranulocytosis secondary to cancer chemotherapy; T45.1X5A Adverse effect of antineoplastic and immunosuppressive drugs, initial encounter; Y92.89 Other specified places as the place of occurrence of the external cause
CPT/HCPCS: 36415; 80053; 82378; 85025; 86301

== ENCOUNTER → 2020-03-06 | Outpatient (CLI) | payer BC ==
[2020-03-06 08:15] LABS: Basophils # (auto) 0 10 ^3/uL (0-0.2); Basophils % (auto) 0.7 % (0.0-2.0); Eosinophils # (auto) 0.1 10 ^3/uL (0-0.8); Eosinophils % (auto) 1.2 % (0.0-7.0); Hematocrit 41.3 % (36.0-46.0); Hemoglobin 14.1 g/dL (12.2-16.2); Lymphocytes # (auto) 1.2 10 ^3/uL (0.4-5.4); Lymphocytes % (auto) 23.4 % (10.0-50.0); Mean Corpuscular Hemoglobin 33.6 pg (28.0-32.0); Mean Corpuscular Hgb Conc. 34.1 g/dL (32.0-36.0); Mean Corpuscular Volume 98.7 fL (80.0-100.0); Monocytes # (auto) 0.5 10 ^3/uL (0-1.3); Monocytes % (auto) 9.5 % (0.0-12.0); Neutrophils # (auto) 3.2 10 ^3/uL (1.6-8.6); Neutrophils % (auto) 65.2 % (37.0-80.0); Nucleated Red Blood Cells % 0.1 %; Platelet Count (auto) 152 10^3/uL (140-450); Red Blood Cells 4.19 10^6/uL (4.0-5.20); Red Cell Distribution Width 14.7 % (11.8-14.3); White Blood Cell 4.9 10^3/uL (4.4-10.8)
[2020-03-06 08:36] LABS: Potassium 4.2 mmol/L (3.5-5.1)
[2020-03-06 08:42] LABS: Albumin 3.5 g/dL (3.4-5.0); BUN/Creatinine Ratio 23.3; Bilirubin, Total 0.3 mg/dL (0.2-1.0); Calcium 9.3 mg/dL (8.5-10.1); Total Protein 8.1 g/dL (6.4-8.2)
== END | disposition home or self-care (01) ==
LOC: LAB 07:41
PROVIDERS: ATTEND Internal Medicine
DX: Z51.11 Encounter for antineoplastic chemotherapy (principal); C22.1 Intrahepatic bile duct carcinoma; C79.51 Secondary malignant neoplasm of bone; D70.1 Agranulocytosis secondary to cancer chemotherapy; T45.1X5A Adverse effect of antineoplastic and immunosuppressive drugs, initial encounter; Y92.89 Other specified places as the place of occurrence of the external cause
CPT/HCPCS: 36415; 80053; 82378; 85025; 86301

== ENCOUNTER → 2020-03-17 | Outpatient (CLI) | payer BC ==
[2020-03-17 09:24] LABS: Basophils # (auto) 0 10 ^3/uL (0-0.2); Basophils % (auto) 0.6 % (0.0-2.0); Eosinophils # (auto) 0.1 10 ^3/uL (0-0.8); Eosinophils % (auto) 1.8 % (0.0-7.0); Hematocrit 46.6 % (36.0-46.0); Hemoglobin 15.5 g/dL (12.2-16.2); Lymphocytes # (auto) 1.3 10 ^3/uL (0.4-5.4); Lymphocytes % (auto) 22.7 % (10.0-50.0); Mean Corpuscular Hemoglobin 32.3 pg (28.0-32.0); Mean Corpuscular Hgb Conc. 33.2 g/dL (32.0-36.0); Mean Corpuscular Volume 97.3 fL (80.0-100.0); Monocytes # (auto) 0.4 10 ^3/uL (0-1.3); Monocytes % (auto) 6.2 % (0.0-12.0); Neutrophils % (auto) 68.7 % (37.0-80.0); Nucleated Red Blood Cells % 0.3 %; Platelet Count (auto) 193 10^3/uL (140-450); Red Blood Cells 4.79 10^6/uL (4.0-5.20); Red Cell Distribution Width 14.7 % (11.8-14.3); White Blood Cell 5.8 10^3/uL (4.4-10.8)
[2020-03-17 09:55] LABS: Albumin 3.8 g/dL (3.4-5.0); BUN/Creatinine Ratio 23.8; Calcium 9.8 mg/dL (8.5-10.1); Potassium 4.3 mmol/L (3.5-5.1)
[2020-03-17 09:57] LABS: Bilirubin, Total 0.3 mg/dL (0.2-1.0)
== END | disposition home or self-care (01) ==
LOC: LAB 09:06
DX: Z51.11 Encounter for antineoplastic chemotherapy (principal); C22.1 Intrahepatic bile duct carcinoma; C79.51 Secondary malignant neoplasm of bone; D70.1 Agranulocytosis secondary to cancer chemotherapy; T45.1X5A Adverse effect of antineoplastic and immunosuppressive drugs, initial encounter; Y92.89 Other specified places as the place of occurrence of the external cause
CPT/HCPCS: 36415; 80053; 82378; 85025; 86301

== ENCOUNTER → 2020-04-03 | Outpatient (CLI) | payer BC ==
[2020-04-03 08:35] LABS: Basophils # (auto) 0 10 ^3/uL (0-0.2); Basophils % (auto) 0.4 % (0.0-2.0); Eosinophils # (auto) 0.1 10 ^3/uL (0-0.8); Eosinophils % (auto) 1.2 % (0.0-7.0); Hematocrit 42.7 % (36.0-46.0); Hemoglobin 14.2 g/dL (12.2-16.2); Lymphocytes # (auto) 1.1 10 ^3/uL (0.4-5.4); Lymphocytes % (auto) 22.2 % (10.0-50.0); Mean Corpuscular Hemoglobin 32.3 pg (28.0-32.0); Mean Corpuscular Hgb Conc. 33.2 g/dL (32.0-36.0); Mean Corpuscular Volume 97.4 fL (80.0-100.0); Monocytes # (auto) 0.6 10 ^3/uL (0-1.3); Monocytes % (auto) 10.8 % (0.0-12.0); Neutrophils # (auto) 3.3 10 ^3/uL (1.6-8.6); Neutrophils % (auto) 65.4 % (37.0-80.0); Nucleated Red Blood Cells % 0.1 %; Platelet Count (auto) 148 10^3/uL (140-450); Red Blood Cells 4.38 10^6/uL (4.0-5.20); Red Cell Distribution Width 15.6 % (11.8-14.3); White Blood Cell 5.1 10^3/uL (4.4-10.8)
[2020-04-03 10:08] LABS: Albumin 3.4 g/dL (3.4-5.0); BUN/Creatinine Ratio 19.8; Bilirubin, Total 0.2 mg/dL (0.2-1.0); Calcium 9.2 mg/dL (8.5-10.1); Total Protein 8.3 g/dL (6.4-8.2)
== END | disposition home or self-care (01) ==
LOC: LAB 07:21
DX: Z51.11 Encounter for antineoplastic chemotherapy (principal); C22.1 Intrahepatic bile duct carcinoma; C79.51 Secondary malignant neoplasm of bone; D70.1 Agranulocytosis secondary to cancer chemotherapy; T45.1X5A Adverse effect of antineoplastic and immunosuppressive drugs, initial encounter; Y92.89 Other specified places as the place of occurrence of the external cause
CPT/HCPCS: 36415; 80053; 82378; 85025; 86301

== ENCOUNTER → 2020-04-14 | Outpatient (CLI) | payer BC ==
[2020-04-14 13:52] LABS: Basophils # (auto) 0 10 ^3/uL (0-0.2); Basophils % (auto) 0.4 % (0.0-2.0); Eosinophils # (auto) 0.1 10 ^3/uL (0-0.8); Eosinophils % (auto) 1.4 % (0.0-7.0); Hematocrit 46.3 % (36.0-46.0); Hemoglobin 15.6 g/dL (12.2-16.2); Lymphocytes # (auto) 1.4 10 ^3/uL (0.4-5.4); Lymphocytes % (auto) 20.3 % (10.0-50.0); Mean Corpuscular Hemoglobin 32.6 pg (28.0-32.0); Mean Corpuscular Hgb Conc. 33.7 g/dL (32.0-36.0); Mean Corpuscular Volume 96.6 fL (80.0-100.0); Monocytes # (auto) 0.4 10 ^3/uL (0-1.3); Neutrophils # (auto) 4.9 10 ^3/uL (1.6-8.6); Neutrophils % (auto) 71.9 % (37.0-80.0); Platelet Count (auto) 182 10^3/uL (140-450); Red Blood Cells 4.79 10^6/uL (4.0-5.20); Red Cell Distribution Width 15.2 % (11.8-14.3); White Blood Cell 6.8 10^3/uL (4.4-10.8)
[2020-04-14 14:08] LABS: Calcium 9.9 mg/dL (8.5-10.1); Potassium 4.6 mmol/L (3.5-5.1)
[2020-04-14 14:14] LABS: Albumin 3.9 g/dL (3.4-5.0); BUN/Creatinine Ratio 19.3; Bilirubin, Total 0.4 mg/dL (0.2-1.0); Total Protein 8.9 g/dL (6.4-8.2)
== END | disposition home or self-care (01) ==
LOC: LAB 13:29
DX: Z51.11 Encounter for antineoplastic chemotherapy (principal); C22.1 Intrahepatic bile duct carcinoma; C79.51 Secondary malignant neoplasm of bone; D70.1 Agranulocytosis secondary to cancer chemotherapy; T45.1X5A Adverse effect of antineoplastic and immunosuppressive drugs, initial encounter; Y92.89 Other specified places as the place of occurrence of the external cause
CPT/HCPCS: 36415; 80053; 82378; 85025; 86301

== ENCOUNTER → 2020-05-01 | Outpatient (CLI) | payer BC ==
[2020-05-01 08:34] LABS: Basophils # (auto) 0 10 ^3/uL (0-0.2); Basophils % (auto) 0.4 % (0.0-2.0); Eosinophils # (auto) 0.1 10 ^3/uL (0-0.8); Eosinophils % (auto) 0.8 % (0.0-7.0); Hemoglobin 14.8 g/dL (12.2-16.2); Lymphocytes # (auto) 1.4 10 ^3/uL (0.4-5.4); Lymphocytes % (auto) 21.8 % (10.0-50.0); Mean Corpuscular Hemoglobin 33.5 pg (28.0-32.0); Mean Corpuscular Hgb Conc. 34.5 g/dL (32.0-36.0); Mean Corpuscular Volume 97.1 fL (80.0-100.0); Monocytes # (auto) 0.4 10 ^3/uL (0-1.3); Monocytes % (auto) 6.9 % (0.0-12.0); Neutrophils # (auto) 4.5 10 ^3/uL (1.6-8.6); Neutrophils % (auto) 70.1 % (37.0-80.0); Nucleated Red Blood Cells % 0.1 %; Platelet Count (auto) 179 10^3/uL (140-450); Red Blood Cells 4.43 10^6/uL (4.0-5.20); Red Cell Distribution Width 15.8 % (11.8-14.3); White Blood Cell 6.4 10^3/uL (4.4-10.8)
[2020-05-01 08:55] LABS: Albumin 3.6 g/dL (3.4-5.0); Calcium 9.5 mg/dL (8.5-10.1)
[2020-05-01 08:58] LABS: BUN/Creatinine Ratio 18.9; Bilirubin, Total 0.3 mg/dL (0.2-1.0); Total Protein 9.1 g/dL (6.4-8.2)
== END | disposition home or self-care (01) ==
LOC: LAB 08:01
DX: Z51.11 Encounter for antineoplastic chemotherapy (principal); C22.1 Intrahepatic bile duct carcinoma; C79.51 Secondary malignant neoplasm of bone; C79.49 Secondary malignant neoplasm of other parts of nervous system; D70.1 Agranulocytosis secondary to cancer chemotherapy; T45.1X5A Adverse effect of antineoplastic and immunosuppressive drugs, initial encounter
CPT/HCPCS: 36415; 80053; 82378; 85025; 86301

== ENCOUNTER → 2020-05-15 | Outpatient (CLI) | payer BC ==
[2020-05-15 08:54] LABS: Basophils # (auto) 0 10 ^3/uL (0-0.2); Basophils % (auto) 0.5 % (0.0-2.0); Eosinophils # (auto) 0.1 10 ^3/uL (0-0.8); Eosinophils % (auto) 1.8 % (0.0-7.0); Hematocrit 38.6 % (36.0-46.0); Hemoglobin 13.1 g/dL (12.2-16.2); Lymphocytes # (auto) 1.4 10 ^3/uL (0.4-5.4); Lymphocytes % (auto) 37.9 % (10.0-50.0); Mean Corpuscular Hemoglobin 33.3 pg (28.0-32.0); Mean Corpuscular Volume 97.8 fL (80.0-100.0); Monocytes # (auto) 0.3 10 ^3/uL (0-1.3); Monocytes % (auto) 6.7 % (0.0-12.0); Neutrophils % (auto) 53.1 % (37.0-80.0); Nucleated Red Blood Cells % 0.2 %; Platelet Count (auto) 163 10^3/uL (140-450); Red Blood Cells 3.95 10^6/uL (4.0-5.20); Red Cell Distribution Width 16.1 % (11.8-14.3); White Blood Cell 3.8 10^3/uL (4.4-10.8)
[2020-05-15 09:04] LABS: Albumin 3.4 g/dL (3.4-5.0); Calcium 8.9 mg/dL (8.5-10.1); Potassium 4.2 mmol/L (3.5-5.1)
[2020-05-15 09:07] LABS: BUN/Creatinine Ratio 21.4; Bilirubin, Total 0.2 mg/dL (0.2-1.0); Total Protein 8.1 g/dL (6.4-8.2)
== END | disposition home or self-care (01) ==
LOC: LAB 07:28
DX: Z51.11 Encounter for antineoplastic chemotherapy (principal); C22.1 Intrahepatic bile duct carcinoma; C79.51 Secondary malignant neoplasm of bone; C79.49 Secondary malignant neoplasm of other parts of nervous system; D70.1 Agranulocytosis secondary to cancer chemotherapy; T45.1X5A Adverse effect of antineoplastic and immunosuppressive drugs, initial encounter; Y92.89 Other specified places as the place of occurrence of the external cause
CPT/HCPCS: 36415; 80053; 82378; 85025; 86301

== ENCOUNTER → 2020-05-29 | Outpatient (CLI) | payer BC ==
[2020-05-29 08:14] LABS: Basophils # (auto) 0 10 ^3/uL (0-0.2); Basophils % (auto) 0.3 % (0.0-2.0); Eosinophils # (auto) 0 10 ^3/uL (0-0.8); Eosinophils % (auto) 0.9 % (0.0-7.0); Hematocrit 41.9 % (36.0-46.0); Hemoglobin 14.4 g/dL (12.2-16.2); Lymphocytes # (auto) 1.6 10 ^3/uL (0.4-5.4); Lymphocytes % (auto) 32.4 % (10.0-50.0); Mean Corpuscular Hemoglobin 33.3 pg (28.0-32.0); Mean Corpuscular Hgb Conc. 34.5 g/dL (32.0-36.0); Mean Corpuscular Volume 96.7 fL (80.0-100.0); Monocytes # (auto) 0.4 10 ^3/uL (0-1.3); Monocytes % (auto) 7.9 % (0.0-12.0); Neutrophils # (auto) 2.8 10 ^3/uL (1.6-8.6); Neutrophils % (auto) 58.5 % (37.0-80.0); Nucleated Red Blood Cells % 0.1 %; Platelet Count (auto) 181 10^3/uL (140-450); Red Blood Cells 4.33 10^6/uL (4.0-5.20); Red Cell Distribution Width 15.7 % (11.8-14.3); White Blood Cell 4.9 10^3/uL (4.4-10.8)
[2020-05-29 08:46] LABS: Albumin 3.7 g/dL (3.4-5.0); Calcium 9.5 mg/dL (8.5-10.1); Potassium 4.5 mmol/L (3.5-5.1)
[2020-05-29 08:50] LABS: BUN/Creatinine Ratio 18.9; Bilirubin, Total 0.3 mg/dL (0.2-1.0); Total Protein 8.6 g/dL (6.4-8.2)
== END | disposition home or self-care (01) ==
LOC: LAB 07:51
DX: Z51.11 Encounter for antineoplastic chemotherapy (principal); C22.1 Intrahepatic bile duct carcinoma; C79.51 Secondary malignant neoplasm of bone; D70.1 Agranulocytosis secondary to cancer chemotherapy; T45.1X5A Adverse effect of antineoplastic and immunosuppressive drugs, initial encounter; Y92.89 Other specified places as the place of occurrence of the external cause
CPT/HCPCS: 36415; 80053; 82378; 85025; 86301

== ENCOUNTER → 2020-06-26 | Outpatient (CLI) | payer BC ==
[2020-06-26 09:09] LABS: Basophils # (auto) 0 10 ^3/uL (0-0.2); Lymphocytes # (auto) 1.2 10 ^3/uL (0.4-5.4); Monocytes # (auto) 0.4 10 ^3/uL (0-1.3); Neutrophils # (auto) 2.7 10 ^3/uL (1.6-8.6)
[2020-06-26 09:11] LABS: Basophils % (auto) 0.6 % (0.0-2.0); Eosinophils # (auto) 0.1 10 ^3/uL (0-0.8); Eosinophils % (auto) 1.2 % (0.0-7.0); Hemoglobin 13.3 g/dL (12.2-16.2); Lymphocytes % (auto) 27.9 % (10.0-50.0); Mean Corpuscular Hemoglobin 33.6 pg (28.0-32.0); Mean Corpuscular Hgb Conc. 34.1 g/dL (32.0-36.0); Mean Corpuscular Volume 98.3 fL (80.0-100.0); Monocytes % (auto) 8.2 % (0.0-12.0); Neutrophils % (auto) 62.1 % (37.0-80.0); Platelet Count (auto) 180 10^3/uL (140-450); Red Blood Cells 3.97 10^6/uL (4.0-5.20); Red Cell Distribution Width 16.7 % (11.8-14.3); White Blood Cell 4.3 10^3/uL (4.4-10.8)
[2020-06-26 09:38] LABS: Albumin 3.5 g/dL (3.4-5.0); Potassium 4.6 mmol/L (3.5-5.1)
[2020-06-26 09:42] LABS: BUN/Creatinine Ratio 22.4; Bilirubin, Total 0.3 mg/dL (0.2-1.0); Total Protein 8.3 g/dL (6.4-8.2)
== END | disposition home or self-care (01) ==
LOC: LAB 08:44
DX: Z51.11 Encounter for antineoplastic chemotherapy (principal); C22.1 Intrahepatic bile duct carcinoma; C79.51 Secondary malignant neoplasm of bone; C79.49 Secondary malignant neoplasm of other parts of nervous system; D70.1 Agranulocytosis secondary to cancer chemotherapy; T45.1X5A Adverse effect of antineoplastic and immunosuppressive drugs, initial encounter; Y92.89 Other specified places as the place of occurrence of the external cause
CPT/HCPCS: 36415; 80053; 85025

== ENCOUNTER → 2020-07-04 | Outpatient (CLI) | payer BC | END | disposition home or self-care (01) | LOC: LAB 07:10 | PROVIDERS: ATTEND Internal Medicine | DX: C22.1 Intrahepatic bile duct carcinoma (principal); C79.51 Secondary malignant neoplasm of bone | CPT/HCPCS: 36415; 82565; 84520 ==

== ENCOUNTER → 2020-07-05 | Outpatient (CLI) | payer BC ==
[~2020-07-05] MED LIST changes: +IOHEXOL 300 MG/ML 100ML BOTTLE IJ ONE
== END | disposition home or self-care (01) ==
LOC: CT 09:23
PROVIDERS: ATTEND Internal Medicine
DX: C22.1 Intrahepatic bile duct carcinoma (principal); C79.51 Secondary malignant neoplasm of bone; M50.31 Other cervical disc degeneration, high cervical region; M48.02 Spinal stenosis, cervical region; M25.78 Osteophyte, vertebrae; M43.8X4 Other specified deforming dorsopathies, thoracic region; M51.34 Other intervertebral disc degeneration, thoracic region; M48.04 Spinal stenosis, thoracic region; M51.36 Other intervertebral disc degeneration, lumbar region; M48.061 Spinal stenosis, lumbar region without neurogenic claudication; K83.8 Other specified diseases of biliary tract; R16.0 Hepatomegaly, not elsewhere classified; R91.1 Solitary pulmonary nodule; J98.11 Atelectasis; R59.0 Localized enlarged lymph nodes; I70.90 Unspecified atherosclerosis; M89.8X8 Other specified disorders of bone, other site; M79.89 Other specified soft tissue disorders; I67.2 Cerebral atherosclerosis; M89.38 Hypertrophy of bone, other site; M53.86 Other specified dorsopathies, lumbar region; Z98.1 Arthrodesis status; Z98.890 Other specified postprocedural states
CPT/HCPCS: 71260; 72125; 72129; 72132; 74177; Q9967

== ENCOUNTER → 2020-07-10 | Outpatient (CLI) | payer BC ==
[~2020-07-10] MED LIST changes: -IOHEXOL 300 MG/ML 100ML BOTTLE IJ ONE
[2020-07-10 08:08] LABS: Basophils # (auto) 0 10 ^3/uL (0-0.2); Basophils % (auto) 0.9 % (0.0-2.0); Eosinophils # (auto) 0 10 ^3/uL (0-0.8); Eosinophils % (auto) 0.4 % (0.0-7.0); Hematocrit 38.3 % (36.0-46.0); Hemoglobin 12.9 g/dL (12.2-16.2); Lymphocytes # (auto) 1.5 10 ^3/uL (0.4-5.4); Lymphocytes % (auto) 32.5 % (10.0-50.0); Mean Corpuscular Hemoglobin 33.4 pg (28.0-32.0); Mean Corpuscular Hgb Conc. 33.6 g/dL (32.0-36.0); Mean Corpuscular Volume 99.4 fL (80.0-100.0); Monocytes # (auto) 0.3 10 ^3/uL (0-1.3); Monocytes % (auto) 7.2 % (0.0-12.0); Neutrophils # (auto) 2.7 10 ^3/uL (1.6-8.6); Nucleated Red Blood Cells % 0.1 %; Platelet Count (auto) 181 10^3/uL (140-450); Red Blood Cells 3.86 10^6/uL (4.0-5.20); Red Cell Distribution Width 17.5 % (11.8-14.3); White Blood Cell 4.5 10^3/uL (4.4-10.8)
[2020-07-10 09:10] LABS: Albumin 3.4 g/dL (3.4-5.0); Calcium 9.2 mg/dL (8.5-10.1); Potassium 4.5 mmol/L (3.5-5.1)
[2020-07-10 09:12] LABS: BUN/Creatinine Ratio 26.1
[2020-07-10 09:15] LABS: Bilirubin, Total 0.2 mg/dL (0.2-1.0); Total Protein 8.1 g/dL (6.4-8.2)
== END | disposition home or self-care (01) ==
LOC: LAB 07:54
DX: C79.49 Secondary malignant neoplasm of other parts of nervous system (principal)
CPT/HCPCS: 36415; 80053; 82378; 85025; 86301

== ENCOUNTER 2020-08-13 11:25 | Inpatient (IN) | payer BC ==
[~2020-08-13] VITALS: Ht 167.6 cm; Wt 58.6 kg
[2020-08-13] MEDS ORDERED: AZITHROMYCIN 500MG/ 250ML 250 ML IV ONE (11:30)
[2020-08-13] MEDS ORDERED: methylPREDNISolone SOD SUCC 125 MG/2 ML VL IV ONE (11:30)
[2020-08-13 12:06] LABS: White Blood Cell 17.8 10^3/uL (4.4-10.8)
[2020-08-13 12:07] LABS: Hematocrit 46.4 % (36.0-46.0); Hemoglobin 15.6 g/dL (12.2-16.2); Mean Corpuscular Hemoglobin 34.1 pg (28.0-32.0); Mean Corpuscular Hgb Conc. 33.5 g/dL (32.0-36.0); Mean Corpuscular Volume 101.8 fL (80.0-100.0); Platelet Count (auto) 105 10^3/uL (140-450); Red Blood Cells 4.56 10^6/uL (4.0-5.20); Red Cell Distribution Width 18.3 % (11.8-14.3)
[2020-08-13 12:16] LABS: Basophils % (manual) 0 (0.0-2.0); Blast Cells 0; Eosinophils % (manual) 0 (0-7); Myelocytes % 0; Promyelocytes % 0; Reactive Lymphocytes 0
[2020-08-13 12:24] LABS: Albumin 2.8 g/dL (3.4-5.0); Calcium 9.8 mg/dL (8.5-10.1); Potassium 4.8 mmol/L (3.5-5.1)
[2020-08-13 12:31] LABS: BUN/Creatinine Ratio 63.6; Bilirubin, Total 0.6 mg/dL (0.2-1.0); Total Protein 7.3 g/dL (6.4-8.2)
[2020-08-13 12:36] LABS: Band Neutrophils % (manual) 7; Lymphocytes % (manual) 2 (10.0-50.0); Metamyelocytes % 1; Monocytes % (manual) 3 (0-12)
[2020-08-13] MEDS ORDERED: HYDROcodone-ACET 5/325MG TAB PO PRN (13:45)
[2020-08-13] MEDS ORDERED: MORPHINE SULF INJ 2 MG/ML SYRINGE 1ML IV PRN ×2 (13:45)
[2020-08-13] MEDS ORDERED: ACETAMINOPHEN 500 MG TAB PO PRN (13:45)
[2020-08-13] MEDS ORDERED: ONDANSETRON HCL 4 MG/2 ML VIAL IV PRN (13:45)
[2020-08-13] MEDS ORDERED: NITROGLYCERIN 0.4 MG SL TAB SL PRN (13:45)
[2020-08-13] MEDS ORDERED: TEMAZEPAM 15 MG CAP PO PRN (14:00)
[2020-08-13 14:23] VITALS: BP 180/89
[2020-08-13 18:30] VITALS: BP 154/96
[2020-08-13 19:20] VITALS: BP 164/94
[2020-08-13] MEDS: ALBUTEROL SULF 2.5 MG/0.5ML(0.5%) NEB SOLN NEB SCH (20:00)
[2020-08-13] MEDS: BUDESONIDE (INHALATION) 0.5 MG/2 ML NEB NEB SCH (20:00)
[2020-08-13] MEDS: IPRATROPIUM BROM 0.5 MG/2.5ML INH SOL NEB SCH (20:00)
[2020-08-13] MEDS ORDERED: GABAPENTIN 100 MG CAP PO ONE (21:15)
[2020-08-13] MEDS ORDERED: oxyCODONE ER 20 MG TAB PO ONE (21:15)
[2020-08-14 01:28] LABS: Urine Bacteria MOD /hpf (None Seen); Urine Blood Negative /uL (Negative); Urine Hyaline Cast FEW /lpf (0 - 2); Urine Mucus MODERATE (None Seen); Urine Specific Gravity 1.025 (1.001-1.035); Urine WBC 11 /hpf (0 - 5)
[2020-08-14] MEDS ORDERED: hydrALAZINE HCL 20 MG/ML VL IV ONE (02:30)
[2020-08-14 05:00] VITALS: BP 145/93
[2020-08-14] MEDS: BUDESONIDE (INHALATION) 0.5 MG/2 ML NEB NEB SCH ×2 (05:21→19:14)
[2020-08-14] MEDS: ALBUTEROL SULF 2.5 MG/0.5ML(0.5%) NEB SOLN NEB SCH ×3 (05:21→19:14)
[2020-08-14] MEDS: IPRATROPIUM BROM 0.5 MG/2.5ML INH SOL NEB SCH ×3 (05:21→19:14)
[2020-08-14] MEDS ORDERED: LORazepam 0.5 MG TAB PO PRN (06:15)
[2020-08-14] MEDS ORDERED: ALBUTEROL SULF 2.5 MG/0.5ML(0.5%) NEB SOLN NEB PRN (06:15)
[2020-08-14 08:00] VITALS: BP 145/93
[2020-08-14 09:00] VITALS: BP 154/82
[2020-08-14] MEDS ORDERED: cefTRIAXone 1GM/50ML D5W 50 ML IV SCH (09:00)
[2020-08-14] MEDS: ENOXAPARIN SOD 40 MG/0.4 ML SYRINGE SC SCH ×2 (10:00→11:42)
[2020-08-14 10:51] LABS: Basophils # (auto) 0 10 ^3/uL (0-0.2); Basophils % (auto) 0.1 % (0.0-2.0); Eosinophils # (auto) 0 10 ^3/uL (0-0.8); Hemoglobin 15.8 g/dL (12.2-16.2); Lymphocytes # (auto) 0.8 10 ^3/uL (0.4-5.4); Lymphocytes % (auto) 4.5 % (10.0-50.0); Mean Corpuscular Volume 101.1 fL (80.0-100.0)
[2020-08-14 10:53] LABS: Hematocrit 46.2 % (36.0-46.0); Mean Corpuscular Hemoglobin 34.6 pg (28.0-32.0); Mean Corpuscular Hgb Conc. 34.3 g/dL (32.0-36.0); Monocytes # (auto) 0.8 10 ^3/uL (0-1.3); Monocytes % (auto) 4.6 % (0.0-12.0); Neutrophils # (auto) 16.2 10 ^3/uL (1.6-8.6); Neutrophils % (auto) 90.8 % (37.0-80.0); Nucleated Red Blood Cells % 0.2 %; Platelet Count (auto) 102 10^3/uL (140-450); Red Blood Cells 4.58 10^6/uL (4.0-5.20); Red Cell Distribution Width 18.4 % (11.8-14.3); White Blood Cell 17.8 10^3/uL (4.4-10.8)
[2020-08-14 11:03] LABS: Calcium 9.8 mg/dL (8.5-10.1)
[2020-08-14 11:06] LABS: BUN/Creatinine Ratio 58.9
[2020-08-14] MEDS: FAMOTIDINE 20 MG TAB PO SCH (11:42)
[2020-08-14] MEDS: AZITHROMYCIN 500MG/ 250ML 250 ML IV SCH (11:47)
[2020-08-14] MEDS ORDERED: PIPERACILLIN-TAZO 4.5GM 100 ML IV ONE (12:15)
[2020-08-14] MEDS ORDERED: PATIENTS OWN MEDICATION PO SCH (12:15)
[2020-08-14 13:00] VITALS: BP 146/70
[2020-08-14] MEDS ORDERED: OXYCODONE W/ ACETAMINOPHEN 5/325MG TABLET PO PRN (13:00)
[2020-08-14] MEDS ORDERED: ACETAMINOPHEN PO PRN (13:30)
[2020-08-14] MEDS ORDERED: OXYCODONE PO PRN (13:30)
[2020-08-14] MEDS ORDERED: GABAPENTIN 300 MG CAP PO SCH (14:00)
[2020-08-14] MEDS: GABAPENTIN 300 MG CAP PO SCH ×2 (14:01→22:17)
[2020-08-14] MEDS: oxyCODONE ER 20 MG TAB PO SCH ×3 (14:01→22:16)
[2020-08-14] MEDS: methylPREDNISolone SOD SUCC 40 MG/ML VL IV SCH ×2 (14:02→22:16)
[2020-08-14] MEDS ORDERED: METOPROLOL TARTRATE 1MG/1ML-5ML VIAL IV ONE (16:00)
[2020-08-14] MEDS ORDERED: LOSARTAN POTASSIUM 25 MG TAB PO ONE (16:00)
[2020-08-14] MEDS ORDERED: amLODIPine BESYLATE 5 MG TAB PO ONE (16:00)
[2020-08-14 17:00] VITALS: BP 165/103
[2020-08-14 22:00] VITALS: BP 146/76
[2020-08-14] MEDS ORDERED: oxyCODONE ER 20 MG TAB PO SCH (22:00)
[2020-08-14] MEDS: PIPERACILLIN-TAZOB 3.375GM 100 ML IV SCH (22:17)
[2020-08-15 05:19] VITALS: BP 112/73
[2020-08-15] MEDS: methylPREDNISolone SOD SUCC 40 MG/ML VL IV SCH ×3 (06:50→21:12)
[2020-08-15] MEDS: PIPERACILLIN-TAZOB 3.375GM 100 ML IV SCH ×3 (06:50→21:12)
[2020-08-15] MEDS: GABAPENTIN 300 MG CAP PO SCH ×3 (06:51→21:11)
[2020-08-15] MEDS: IPRATROPIUM BROM 0.5 MG/2.5ML INH SOL NEB SCH ×3 (06:51→19:00)
[2020-08-15] MEDS: oxyCODONE ER 20 MG TAB PO SCH ×3 (06:51→20:26)
[2020-08-15] MEDS: BUDESONIDE (INHALATION) 0.5 MG/2 ML NEB NEB SCH ×2 (06:52→19:00)
[2020-08-15] MEDS: ALBUTEROL SULF 2.5 MG/0.5ML(0.5%) NEB SOLN NEB SCH ×3 (06:52→19:00)
[2020-08-15 07:55] LABS: Basophils # (auto) 0 10 ^3/uL (0-0.2); Basophils % (auto) 0.2 % (0.0-2.0); Eosinophils # (auto) 0 10 ^3/uL (0-0.8); Hematocrit 47.7 % (36.0-46.0); Hemoglobin 15.5 g/dL (12.2-16.2); Lymphocytes # (auto) 0.8 10 ^3/uL (0.4-5.4); Lymphocytes % (auto) 4.5 % (10.0-50.0); Mean Corpuscular Hemoglobin 33.4 pg (28.0-32.0); Mean Corpuscular Hgb Conc. 32.4 g/dL (32.0-36.0); Mean Corpuscular Volume 102.9 fL (80.0-100.0); Monocytes # (auto) 0.3 10 ^3/uL (0-1.3); Monocytes % (auto) 1.8 % (0.0-12.0); Neutrophils # (auto) 16.8 10 ^3/uL (1.6-8.6); Neutrophils % (auto) 93.5 % (37.0-80.0); Nucleated Red Blood Cells % 0.2 %; Platelet Count (auto) 111 10^3/uL (140-450); Red Blood Cells 4.64 10^6/uL (4.0-5.20); Red Cell Distribution Width 18.9 % (11.8-14.3); White Blood Cell 17.9 10^3/uL (4.4-10.8)
[2020-08-15 08:22] LABS: Albumin 2.6 g/dL (3.4-5.0); BUN/Creatinine Ratio 66.7; Bilirubin, Total 0.9 mg/dL (0.2-1.0); Calcium 9.3 mg/dL (8.5-10.1); Total Protein 6.9 g/dL (6.4-8.2)
[2020-08-15 08:35] LABS: Potassium 4.5 mmol/L (3.5-5.1)
[2020-08-15 09:03] VITALS: BP 123/70
[2020-08-15] MEDS: POLYETHYLENE GLYCOL 17 GM PWDR PO SCH (10:00)
[2020-08-15] MEDS: ENOXAPARIN SOD 40 MG/0.4 ML SYRINGE SC SCH (10:00)
[2020-08-15 10:15] LABS: INR 1.1 (0.9-1.15); Partial Thromboplastin Time 26.5 sec (23.0-31.2)
[2020-08-15] MEDS: AZITHROMYCIN 500MG/ 250ML 250 ML IV SCH (11:33)
[2020-08-15] MEDS: LOSARTAN POTASSIUM 25 MG TAB PO SCH (11:33)
[2020-08-15 12:30] VITALS: BP 123/79
[2020-08-15] MEDS: FAMOTIDINE 20 MG TAB PO SCH (12:34)
[2020-08-15 16:34] VITALS: BP 98/66
[2020-08-15 22:00] VITALS: BP 102/63
[2020-08-16 04:34] VITALS: BP 126/74
[2020-08-16] MEDS: GABAPENTIN 300 MG CAP PO SCH ×2 (05:36→13:28)
[2020-08-16] MEDS: PIPERACILLIN-TAZOB 3.375GM 100 ML IV SCH ×2 (05:36→13:28)
[2020-08-16] MEDS: methylPREDNISolone SOD SUCC 40 MG/ML VL IV SCH ×2 (05:36→13:27)
[2020-08-16] MEDS: oxyCODONE ER 20 MG TAB PO SCH ×2 (05:38→12:00)
[2020-08-16] MEDS: ALBUTEROL SULF 2.5 MG/0.5ML(0.5%) NEB SOLN NEB SCH ×2 (06:48→12:05)
[2020-08-16] MEDS: BUDESONIDE (INHALATION) 0.5 MG/2 ML NEB NEB SCH (06:48)
[2020-08-16] MEDS: IPRATROPIUM BROM 0.5 MG/2.5ML INH SOL NEB SCH ×2 (06:48→12:05)
[2020-08-16 07:41] VITALS: BP 126/74
[2020-08-16] MEDS: ENOXAPARIN SOD 40 MG/0.4 ML SYRINGE SC SCH (08:29)
[2020-08-16] MEDS: AZITHROMYCIN 500MG/ 250ML 250 ML IV SCH (08:29)
[2020-08-16] MEDS: LOSARTAN POTASSIUM 25 MG TAB PO SCH (08:30)
[2020-08-16] MEDS: POLYETHYLENE GLYCOL 17 GM PWDR PO SCH (08:30)
[2020-08-16] MEDS: FAMOTIDINE 20 MG TAB PO SCH (08:31)
[2020-08-16 08:40] VITALS: BP 101/70
[2020-08-16 13:00] VITALS: BP 101/72
== END 2020-08-16 16:55 | disposition home or self-care (01) | DRG 193 ==
LOC: ER 11:25 → TELE 11:26 → TELE-EAST 18:55
PROVIDERS: ADMIT Nurse Practitioner Acute Care; ATTEND Internal Medicine
DX: J18.9 Pneumonia, unspecified organism (principal); J96.00 Acute respiratory failure, unspecified whether with hypoxia or hypercapnia; C22.9 Malignant neoplasm of liver, not specified as primary or secondary; D68.59 Other primary thrombophilia; J44.0 Chronic obstructive pulmonary disease with (acute) lower respiratory infection; J44.1 Chronic obstructive pulmonary disease with (acute) exacerbation; Z20.822 Contact with and (suspected) exposure to COVID-19; F17.210 Nicotine dependence, cigarettes, uncomplicated; Z80.9 Family history of malignant neoplasm, unspecified; Z85.05 Personal history of malignant neoplasm of liver
CPT/HCPCS: 36415; 36600; 71045; 71250; 80048; 80053; 81001; 82805; 83605; 83880; 84484; 85007; 85025; 85027; 85379; 85610; 85730; 87040; 87070; 87077; 87186; 87205; 87426; 93005; 94640; 96365; 96366; 96375; G0378; J0696; J1642; J2543

== ENCOUNTER → 2020-08-23 | Outpatient (CLI) | payer BC ==
[2020-08-23 13:14] LABS: Albumin 2.6 g/dL (3.4-5.0); Calcium 9.1 mg/dL (8.5-10.1); Potassium 4.5 mmol/L (3.5-5.1)
[2020-08-23 13:17] LABS: BUN/Creatinine Ratio 51.9; Bilirubin, Total 0.4 mg/dL (0.2-1.0); Total Protein 6.4 g/dL (6.4-8.2)
[2020-08-23 13:43] LABS: Basophils # (auto) 0 10 ^3/uL (0-0.2); Basophils % (auto) 0.1 % (0.0-2.0); Eosinophils # (auto) 0 10 ^3/uL (0-0.8); Hematocrit 40.7 % (36.0-46.0); Hemoglobin 13.6 g/dL (12.2-16.2); Lymphocytes # (auto) 0.8 10 ^3/uL (0.4-5.4); Lymphocytes % (auto) 4.7 % (10.0-50.0); Mean Corpuscular Hemoglobin 33.7 pg (28.0-32.0); Mean Corpuscular Hgb Conc. 33.3 g/dL (32.0-36.0); Mean Corpuscular Volume 101.1 fL (80.0-100.0); Monocytes # (auto) 0.5 10 ^3/uL (0-1.3); Monocytes % (auto) 2.8 % (0.0-12.0); Neutrophils # (auto) 15.1 10 ^3/uL (1.6-8.6); Neutrophils % (auto) 92.4 % (37.0-80.0); Nucleated Red Blood Cells % 0.2 %; Platelet Count (auto) 142 10^3/uL (140-450); Red Blood Cells 4.03 10^6/uL (4.0-5.20); Red Cell Distribution Width 17.9 % (11.8-14.3); White Blood Cell 16.3 10^3/uL (4.4-10.8)
== END | disposition home or self-care (01) ==
LOC: LAB 12:28
PROVIDERS: ATTEND Internal Medicine
DX: C24.0 Malignant neoplasm of extrahepatic bile duct (principal)
CPT/HCPCS: 36415; 80053; 85025; 85652; 87070; 87077; 87205